=== PATIENT | female | born 1950 ===

== ENCOUNTER 2025-06-01 12:58 | Outpatient (AMB) | payer MEDICARE, OTHER, SELFPAY ==
--- OUTSIDE RECORDS SUMMARY | 2025-06-01 14:09 | XMS_ITS | Encounter Summary ---
Author Organization [facility] Address [address] [facility] [address] [place] [address] Phone Care Team Providers Care Band Saw Marker Name Role Phone Stan Diaz MD Primary Care Provider + [phone] Jarrod Goncalves MD Unavailable [phone] Stan Diaz MD Unavailable [phone] Encounter Details Date Type Department Care Team (Late st Contact Info) Description 12/30/2021 Procedure Pass [facility] Endoscopy Admitting Dept Virtual Department [address] [place] [address] Social History Tobacco Use Types Packs/Day Years Used Date Smoking Tobacco: Former Cigarettes 1 12 1 - 07/14/1975 Smokeless Tobacco: Never Alcohol Use Standard Drinks/Week Comments Yes 14 (1 standard drink = 0.6 oz pu re alcohol) Comments No Sex and Gender Information Value Date Recorded Sex Assigned at Female 06/25/2021 8:57 AM EDT Legal Sex Female 10:02 PM EDT Gender Identity Female 06/25/2021 8:57 AM EDT Sexual Orientation Not on file documented as of this encounter Plan of Treatment Upcoming Encounters Date Type Department Care Team (Late st Contact Info) Description 06/02/2025 9:00 AM EDT Office Visit [facility] [address] [place] [address] Stan Diaz MD [address] [facility], [address] [place] [address] [email or web address] documented as of this encounter Visit Diagnoses Not on filedocumented in this encounter Additional Health Concerns Assessment Noted Time PHQ-2 Depression Total Score: 0 12/27/19 22 12:57 PM EDT documented as of this encounter Care Teams Band Saw Marker Relationship Specialty Start Date End Date Stan Diaz MD [address] [place] [address], [address] [place] [address] [email or web address] PCP - General 07/26/17 Jarrod Goncalves MD [address] [address] Vascular Surgery 09/15/19 Stan Diaz MD [address] [place] [address], [address] [place] [address] [email or web address] Insurance Assigned Provider 01/12/24 documented as of this encounter Additional Source Comments The information contained in this document represents components of the legal health record. It is not the complete legal health record.[facility]
--- OUTSIDE RECORDS SUMMARY | 2025-06-01 14:09 | XMS_ITS | Encounter Summary ---
Author Organization [facility] Address [address] [place] [address] Phone Care Team Providers Care Veterinary Assistant Technician Name Role Phone Stan Diaz MD Primary Care Provider [phone]- [phone] Jarrod Goncalves MD Unavailable [phone] Stan Diaz MD Unavailable [phone] Encounter Details Date Type Department Care Team (Late st Contact Info) Description 09/26/2024 Procedure Pass [facility], [address] [address] Social History Tobacco Use Types Packs/Day Years Used Date Smoking Tobacco: Former Cigarettes 1 12 1 - 07/14/1975 Smokeless Tobacco: Never Alcohol Use Standard Drinks/Week Comments Yes 10 (1 standard drink = 0.6 oz pu re alcohol) Education Answer Date Recorded Are you interested in more education? Not on henry e 02/02/2023 Are you concerned about learning? Not on file 02/02/2023 No 02/02/2023 No 02/02/2023 Digital Access Answer Date Recorded No 03/05/2023 No 03/05/2023 Reliable internet access at home? Not on file 03/05/2023 Device with a working camera? Not on file Intimate Partner Violence Answer Date R ecorded Denied Basic Needs Not on file 03/30/2023 In the past 12 months have y ou been in a relationship with a person who hurts, threatens, or tries to control you? No 03/30/2023 Worried food would run out Not on file 03/30 In the past 12 months have y ou been in a relationship with a person who hurts, threatens, or tries to control you? No 03/30/2023 Comments No Sex and Gender Information Value Date Recorded Sex Assigned at Female 06/25/2021 8:57 AM EDT Legal Sex Female 10:02 PM EDT Gender Identity Female 06/25/2021 8:57 AM EDT Sexual Orientation Not on file documented as of this encounter Plan of Treatment Upcoming Encounters Date Type Department Care Team (Late st Contact Info) Description 06/02/2025 9:00 AM EDT Office Visit [facility] Family Medicine [address] [place] [address] Stan Diaz MD 22 [facility], [address] [address] [email or web address] documented as of this encounter Visit Diagnoses Not on filedocumented in this encounter Additional Health Concerns Assessment Noted Time PHQ-2 Depression Total Score: 0 10/22/19 25 11:06 AM EST documented as of this encounter Care Teams Veterinary Assistant Technician Relationship Specialty Start Date End Date Stan Diaz MD [address] [place] [address], [address] [place] [address] PCP - General 07/26/17 Jarrod Goncalves MD [address] [address] Vascular Surgery 09/15/19 Stan Diaz MD [address] [place] [address], [address] [place] [address] [email or web address] Insurance Assigned Provider 01/12/24 documented as of this encounter Additional Source Comments The information contained in this document represents components of the legal health record. It is not the complete legal health record.[facility]
--- OUTSIDE RECORDS SUMMARY | 2025-06-01 14:09 | XMS_ITS | Encounter Summary ---
Author Organization [facility] Address [address] [facility] [address] [place] [address] Phone Care Team Providers Care Credit Manager Name Role Phone Stan Diaz MD Primary Care Provider + [phone] Jarrod Goncalves MD Unavailable [phone] Stan Diaz MD Unavailable [phone] Encounter Details Date Type Department Care Team (Late st Contact Info) Description 07/24/2019 Ancillary Orders [address] [place] [address] Stan Diza MD [address] [facility], [address] [place] [address] [email or web address] Breast screening Social History Tobacco Use Types Packs/Day Years [...] Description 06/02/2025 9:00 AM EDT Office Visit [address] [place] [address] Stan Diaz MD [address] [place] [address], [address] [place] [address] documented as of this encounter Results * BI MAMMOGRAM SCREENING WITH TOMOSYNTHESIS WITH CAD (BILATERAL) (10/20/2019 9:50 AM EST) Anatomical Region Laterality Modality Breast Left, Breast Right, Breast Bilateral Bila teral Mammography 10/20/2019 10:4 1 AM EST Impressions 10/20/2019 10:43 AM EST No mammographic evidence of malignancy. BI-RADS CATEGORY: 1 - Negative. DENSITY: There are scattered fibroglandular densities. POS - [facility] Narrative 10/20/2019 10:43 AM EST Standard digital full-field 2-D C view and two-plane tomographic imaging was performed and compared with multiple prior studies, most recently 10/18/2018, with utilization of computer-aided detection. The breasts are composed of scattered fibroglandular densities. The stromal markings are essentially unchanged in overall appearance and distribution. No dominant spiculated mass, suspicious clustered microcalcifications, or focal zone of pathologic skin thickening or retraction are noted to have arisen in the interim. Procedure Note Pato Tatum MD - 10/20/2019 Standard digital full-field 2-D C view and two-plane tomographic imagingwas performed and compared with multiple prior studies, most hetrngms28/11/2019, with utilization of computer-aided detection. The breasts are composed of scattered fibroglandular densities. Thestromal markings are essentially unchanged in overall appearance anddistribution. No dominant spiculated mass, suspicious clusteredmicrocalcifications, or focal zone of pathologic skin thickening orretraction are noted to have arisen in the interim. IMPRESSION: No mammographic evidence of malignancy. BI-RADS CATEGORY: 1 - Negative. DENSITY: There are scattered fibroglandular densities. POS - [facility] us Stan Diaz MD IMG MG EXAMS Final Resu lt documented in this encounter Visit Diagnoses Diagnosis Breast screening Breast screening, unspecified Breast screening Breast screening, unspecified documented in this encounter Additional Health Concerns Infection Onset Date Last Indicated Resolved Time CoV-Risk 06/25/2021 06/29/2021 07/09/2021 1:23 AM EDT Assessment Noted Time PHQ-2 Depression Total Score: 0 08/07/20 2:36 PM EDT documented as of this encounter Care Teams Credit Manager Relationship Specialty Start Date End Date Stan Diaz MD [address] [place] [address], [address] [place] [address] [email or web address] PCP - General 07/26/17 Jarrod Goncalves MD [address] [address] Vascular Surgery 09/15/19 Stan Diaz MD [address] [place] [address], [address] [place] [address] [email or web address] Insurance Assigned Provider 01/12/24 documented as of this encounter Additional Source Comments The information contained in this document represents components of the legal health record. It is not the complete legal health record.[facility]
--- OUTSIDE RECORDS SUMMARY | 2025-06-01 14:09 | XMS_ITS | Encounter Summary ---
Author Organization [facility] Address [address] [facility] [address] [place] [address] Phone Care Team Providers Care Button Facing Machine Operator Name Role Phone Stan Diaz MD Primary Care Provider + [phone] Jarrod Goncalves MD Unavailable [phone] Stan Diaz MD Unavailable [phone] Encounter Details Date Type Department Care Team (Late st Contact Info) Description 07/28/2020 Procedure Pass [address] [address] Social History Tobacco Use Types Packs/Day Years [...] Description 06/02/2025 9:00 AM EDT Office Visit [facility] Medicine [address] [place] [address] Stan Diaz MD [address] [facility], [address] [place] [address] documented as of this encounter Visit Diagnoses Not on filedocumented in this encounter Additional Health Concerns Infection Onset Date Last Indicated Resolved Time CoV-Risk 06/25/2021 06/29/2021 07/09/2021 1:23 AM EDT Assessment Noted Time PHQ-2 Depression Total Score: 0 08/07/20 2:36 PM EDT documented as of this encounter Care Teams Button Facing Machine Operator Relationship Specialty Start Date End Date Stan Diaz MD [address] [place] [address], [address] [place] [address] PCP - General 07/26/17 Jarrod Goncalves MD [address] [address] Vascular Surgery 09/15/19 Stan Diaz MD [address] [place] [address], [address] [place] [address] Insurance Assigned Provider 01/12/24 documented as of this encounter Additional Source Comments The information contained in this document represents components of the legal health record. It is not the complete legal health record.[facility]
--- OUTSIDE RECORDS SUMMARY | 2025-06-01 14:09 | XMS_ITS | Clinical Summary ---
Author Organization [facility] Address [address] [address] Phone Care Team Providers Care Customer Engagement Specialist Name Role Phone Stan Diaz MD Primary Care Provider [phone] Jarrod Goncalves MD Unavailable Stan Diaz MD Unavailable [phone] Allergies Active Allergy Reactions Criticality Noted Date Comments Morphine Itching 05/18/2017 Opioids-Meperidine And Related 08/07 Oxycodone-Acetaminophen Unknown 05/18/2017 Sulfa (Sulfonamide Antibiotics) Rash Low 05/08 Enalapril Maleate Rash Low 05/18/2017 Medications aspirin 81 mg chewable tablet Take 1 tablet by mouth daily. 10/28/19 16 Active cyanocobalamin, vitamin B-12, 1,000 mcg Subl sublingual tablet Take 1 tablet by mouth every other day. 06/02/20 13 Active cholecalciferol, vitamin D3, 25 mcg (1,000 unit) capsule Take 1,000 Units by mouth daily. daily Active polyethylene glycol (MIRALAX) 17 gram packet Take 0.4 g/kg by mouth daily. Active traMADoL (ULTRAM) 50 mg tablet Take 50 mg by mouth every 6 (six) hours as needed. 08/27/20 23 Active desonide (DESOWEN) 0.05 % ointment Apply 0.05 Applications topically as needed. 01/01/20 24 Active coenzyme Q10 200 mg capsule Take 200 mg by mouth daily. Active ketoconazole 2 % cream Apply 2 Applications topically as needed. 60 g 10/22/19 25 Active clobetasol (TEMOVATE) 0.05 % cream Apply 1 Application topically 2 (two) times a day as needed (Eczema). Eczema 10/22/19 25 Active buPROPion (WELLBUTRIN SR) 100 MG SR 12 hr tablet TAKE 1 TABLET BY MOUTH EVERY DAY 90 tablet 3 01/06/20 25 Active levothyroxine (SYNTHROID, LEVOTHROID) 100 MCG tabletIndications: Acquired hypothyroidism TAKE 1 TABLET BY MOUTH ONCE DAILY IN THE MORNING 90 tablet 3 01/07/20 25 Active amLODIPine (NORVASC) 5 MG tablet Take 1 tablet (5 mg total) by mouth daily. 90 tablet 1 03/06/20 25 Active atorvastatin (LIPITOR) 10 MG tablet Take 1 tablet by mouth once daily 90 tablet 03/11/20 25 Active hydroCHLOROthiazid e 25 MG tablet Take 1 tablet by mouth once daily 90 tablet 03/11/20 25 Active atenolol (TENORMIN) 100 MG tabletIndications: Essential hypertension TAKE 1 TABLET BY MOUTH EVERY DAY 90 tablet 3 03/31/20 25 Active Hospital, Clinic, or Other Facility Administered Medication Ordered Dose Route Frequency Start Date End Date Status lidocaine (XYLOCAINE) 1% injection 2 mLIndications:Primary localized osteoarthrosis of right shoulder region 2 mL See Adm Inst Once 05/06/2025 08/04/2025 A ctive BUPivacaine HCl (MARCAINE) 0.25% injection 2 mLIndications:Primary localized osteoarthrosis of right shoulder region 2 mL See Adm Inst Once 05/06/2025 08/04/2025 A ctive triamcinolone acetonide (KENALOG-40) 40 mg/mL injection 80 mgIndications:Primary localized osteoarthrosis of right shoulder region 80 mg See Adm Inst Once 05/06/2025 08/04/2025 A ctive Active Problems Problem Noted Date Diagnosed Date Degeneration of intervertebr al disc of lumbar region with discogenic back pain 10/22/2024 Assessment & Plan (10/22/2024 3:19 PM EST): S/P evacuation of hematoma 03/18/2024 Eye pain, right 05/26/2023 Assessment & Plan (05/26/2023 3:50 PM EDT): Pt with ongoing gritty sensation in right eye. I advised urgent evaluation by [facility] for further assessment and diagnoses. No clear evidence of infection on exam today. Unclear if lesions noted are part of patient's typical anatomy or area of concern. She will call our office if symptoms worsen. She is advised of and aware of red flag symptoms that should prompt urgent evaluation. She will continue to use moisturizing drops for comfort. 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 Continue present medications without change. Ketoconazole refill provided. Mild intermittent asthma without complication Osteopenia 09/25/2017 Poor balance 09/25/2017 Seasonal affective disorder 09/25/2017 Sessile colonic polyp 09/25/2017 Seasonal allergies Overview (03/01/2022): gets injections Stenosis of right carotid artery Overview (03/01/2022): Monitored by dr goncalves Assessment & Plan (10/22/2024 3:19 PM EST): Resolved Problems Problem Noted Date Diagnosed Date Resolved Date Serum calcium elevated 09/25/201706/19 Neck swelling 09/25/2017 06/19/2022 Shortness of breath 09/25/2017 06/19/20 22 Encounters Date Type Department Care Team Description 05/06/2025 1:30 PM EDT Office Visit [facility] [address] [place] [address] Syl Campuzano MD Primary localized osteoarthrosis of right shoulder region (Primary Dx) 04/23/2025 8:20 AM EDT - 04/23/2025 11:59 PM EDT Hospital Encounter [facility] [address] [place] [address] Stan Diaz MD Discharge Disposition: Home or Self Care 04/21/2025 10:00 AM EDT Office Visit [facility] [address] [place] [address] Stan Diaz MD Essential hypertension (Primary Dx); 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; Acquired hypothyroidism; Hair loss 03/30/2025 Refill [facility] [address] [place] [address] Stan Diaz MD Medication Refill 03/20/2025 10:12 AM EDT - 03/20/2025 11:59 PM EDT Hospital Encounter [address] [address] Stan Diaz MD Discharge Disposition: Home or Self Care 03/11/2025 Refill [facility] [address] [place] [address] Stan Diaz MD Medication Refill 09/26/2024 Procedure Pass [address] [address] from Last 3 Months Immunizations Immunization Administration Dates Next Due COVID-19 (Pre-07/30) Pfizer Vaccine, Bivalent 12+ 07/09/2022 COVID-19 (Pre-07/30) Pfizer Vaccine, mRNA, PF 12/18/2020,11/27/2020 INFLUENZA, SPLIT VIRUS, TRIV ALENT W/ PRESERVATIVE IM 08/15/2012,06/09/2011 Influenza High-Dose Quadriva lent Preservative Free IM 07/09/2022,07/09/2020 Influenza High-Dose Trivalen t Preservative Free IM 06/27/2024,07/11/2019,07/09/2018,07/10,06/30/2016,07/23/2015 Influenza trivalent preserva tive free intradermal 07/08/2013 Influenza, Unspecified Formulation 07/01/2023,,06/24/2010 Pneumococcal conjugate PCV13 07/23/2015 Pneumococcal polysaccharide PPSV23 07/24/2016 RSV Vaccine (monovalent, adjuvanted) 07/17/2023 Td (adult),2 Lf Tetanus Toxo id, PF, Adsorbed 06/06/2021 Tdap 01/31/2011 Zoster live 07/10/2011 Zoster recombinant 03/20/2018,01/10/2018 Family History Medical History Relation Comments Cancer Father Lung cancer Sister 1 Cancer Sister 2 Cancer Sister 3 Breast cancer Neg Hx Relation Status Comments Father Sister 1 Sister 2 Sister 3 Alive Social History Tobacco Use Types Packs/Day Years Used Date Smoking Tobacco: Former Cigarettes 1 12 1 - 07/14/1975 Smokeless Tobacco: Never Tobacco Cessation:Counseling Given: Not Answered Alcohol Use Standard Drinks/Week Comments Yes 10 [...] ecorded Denied Basic Needs Not on file 10/22/2024 In the past 12 months have y ou been in a relationship with a person who hurts, threatens, or tries to control you? No 10/22/2024 Worried food would run out Not on file 10/22 In the past 12 months have y ou been in a relationship with a person who hurts, threatens, or tries to control you? No 10/22/2024 Comments No Sex and Gender Information Value Date Recorded Sex Assigned at Female 06/25/2021 8:57 AM EDT Legal Sex Female 10:02 PM EDT Gender Identity Female 06/25/2021 8:57 AM EDT Sexual Orientation Not on file Last Filed Vital Signs Vital Sign Reading Time Taken Comments Blood Pressure 130/80 04/21/2025 10:09 AM EDT home average Pulse 50 04/21/2025 9:47 AM EDT Temperature 35.6 C (96.1 F) 10/22/2024 2:11 PM EST Respiratory Rate 20 04/04/2023 12:5 1 PM EDT Oxygen Saturation 98% 04/21/2025 9:4 7 AM EDT Inhaled Oxygen Concentration - - Weight 57.7 kg (127 lb 3.2 oz) 04/21/20 9:47 AM EDT Height 152.5 cm (5' 0.04 ) 04/21/2025 9 :47 AM EDT Body Mass Index 24.81 04/21/2025 9:47 AM EDT Plan of Treatment Upcoming Encounters Date Type Department Care Team (Late st Contact Info) Description 06/02/2025 9:00 AM EDT Office Visit [facility] [address] [place] [address] [place] [address] Stan Diaz MD [address] [facility], [address] [place] [address] Health Maintenance Due Date Last Done Comments COLOGUARD 1995 FIT TEST 1995 FOBT 1995 SIGMOIDOSCOPY 1995 VIRTUAL COLONOSCOPY 1995 COVID-19 VACCINE ( season) 2024 06/27/2024, 07/03/2023, 07/09/2022, Additional history exists INFLUENZA VACCINE (#1) 2025 , 07/01/2023, 07/01/2023, Additional history exists BLOOD PRESSURE 10/22/2025 04/21/2025 DEPRESSION SCREENING 10/22/2025 10/22/2024 LIPID PANEL 04/23/2026 04/23/2025, 09/0 01/2024, 04/05/2023, Additional history exists POTASSIUM LEVEL 04/23/2026 04/23/2025, 09/0 01/2024, 04/05/2023, Additional history exists TSH LEVEL 04/23/2026 04/23/2025, 09/0 01/2024, 04/05/2023, Additional history exists COLONOSCOPY 12/30/2026 12/30/2021, 09/27/2016 COLORECTAL CANCER SCREENING 12/30/2026 MAMMOGRAM 03/20/2027 03/20/2025, 12/07, 10/26/2022, Additional history exists Adult Td,Tdap Booster 06/06/2031 06/06/2021, 011 PNEUMOCOCCAL VACCINES (50+ years) Completed 07/24/2016, 07/23/2015 ZOSTER VACCINES Completed 03/20/2018, 02/2018, 07/10/2011 HEPATITIS C SCREENING Completed 08/09/2018, 018 RSV VACCINE Completed 07/17/2023 OSTEOPOROSIS SCREENING INITIAL (ONE-TIME) Completed 06/11/2024, 12/27/2018, 08/06/2015 SMOKING STATUS SCREENING (Once After 26 Yrs) Completed 05/06/2025 HEPATITIS A VACCINES Aged Out No long er eligible based on patient's age to complete this topic HIB VACCINES Aged Out No longer eligi ble based on patient's age to complete this topic MENINGOCOCCAL VACCINES (ACWY) Aged Out No longer eligible based on patient's age to complete this topic MENINGOCOCCAL VACCINES (B) Aged Out N o longer eligible based on patient's age to complete this topic Medical Devices Not on file Procedures Procedure Name Priority Date/Time Associated Diagnosis Comments LIPID PANEL Routine 04/23/2025 8:30 AM EDT 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 TSH WITH REFLEX Routine 04/23/2025 8:30 AM EDT Acquired hypothyroidism CBC AND DIFFERENTIAL Routine 04/23/2025 8:30 AM EDT Hair loss FERRITIN Routine 04/23/2025 8:30 AM EDT Hair loss BASIC METABOLIC PANEL Routine 04/23/2025 8:30 AM EDT 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 BI MAMMOGRAM SCREENING WITH TOMOSYNTHESIS WITH CAD (BILATERAL) Routine 03/20/2025 10:30 AM EDT Visit for screening mammogram BD DXA AXIAL (SPINE) WITH HIP Routine 06/11/2024 1:44 PM EDT Osteopenia, unspecified location ENDOSCOPY, COLON 12/30/2021 8:43 AM EDT HEPATITIS C ANTIBODY, QUALITATIVE Routine 08/09/2018 9:13 AM EDT Annual physical exam from Last 3 Months or Most Recently Relevant to Health Maintenance Results * TSH with reflex (04/23/2025 8:30 AM EDT) TSH 1.98 0.27 - 4.20 uIU/mL [facility] Blood 04/23/2025 8:30 AM EDT 04/23/2025 8:34 AM EDT us Stan Diaz MD LAB BLOOD ORDERABLES Final Result [address] [address] * (ABNORMAL) CBC and differential (04/23/2025 8:30 AM EDT) WBC 5.80 4.00 - 11.00 K/uL [facility] RBC 4.52 4.00 - 5.20 M/uL [facility] HGB 14.2 12.0 - 16.0 g/dL [facility] HCT 41.4 36.0 - 46.0 % [facility] PLT 251 150 - 450 K/uL [facility] MCV 91.6 80.0 - 100.0 fL [facility] MCH 31.4(H) 27.0 - 31.0 pg [facility] MCHC 34.3 32.0 - 36.0 g/dL [facility] RDW 12.1 11.5 - 14.5 % [facility] MPV 9.8 8.4 - 12.0 fL [facility] NRBC 0.00 0.00 /100 WBCs [facility] ABSOLUTE NRBC 0.00 0.00 K/uL [facility] DIFF METHOD Auto [facility] NEUTS 54.4 48.0 - 76.0 % [facility] LYMPHS 32.1 18.0 - 41.0 % [facility] MONOS 8.1 4.0 - 11.0 % [facility] EOS 4.3 0.0 - 5.0 % [facility] BASOS 0.9 0.0 - 1.5 % [facility] Granulocytes, immature (%) 0.2 0.0 - 0.9 % [facility] ABSOLUTE NEUTS 3.16 1.92 - 7.60 K/uL [facility] ABSOLUTE LYMPHS 1.86 0.72 - 4.10 K/uL [facility] ABSOLUTE MONOS 0.47 0.16 - 1.10 K/uL [facility] ABSOLUTE EOS 0.25 0.00 - 0.50 K/uL [facility] ABSOLUTE BASOS 0.05 0.00 - 0.15 K/uL [facility] Granulocytes, immature 0.01 0.00 - 0.09 K/uL [facility] Blood 04/23/2025 8:30 AM EDT 04/23/2025 8:34 AM EDT Stan Diaz MD LAB BLOOD ORDERABLES Final Result Performing Organization Address [facility]/ZIP Co de Phone Number [address] [address] * Ferritin (04/23/2025 8:30 AM EDT) FERRITIN 103 13 - 150 ug/L [facility] Blood 04/23/2025 8:30 AM EDT 04/23/2025 8:34 AM EDT Stan Diaz MD LAB BLOOD ORDERABLES Final Result Performing Organization Address [facility]/ZIP Co de Phone Number [address] [address] * (ABNORMAL) Lipid panel (04/23/2025 8:30 AM EDT) HDL 63 mg/dL [facility] Comment: Interpretation <40 mg/dL: Low HDL cholesterol (major risk factor for CHD) Greater than or equal to 60 mg/dL: High HDL cholesterol ( negative risk factor for CHD) HDL - cholesterol is affected by a number of factors, e.g. smoking, excerise, hormones, sex and age. CHOLESTEROL 163 0 - 240 mg/dL [facility] TRIGLYCERIDES 130 30 - 160 mg/dL [facility] LDL 74 50 - 129 mg/dL [facility] Comment: LDL levels in terms of risk for coronary heart disease: <100 mg/dL: Optimal 100-129 mg/dL: Near or above optimal 130-159 mg/dL: Borderline high 160-189 mg/dL: High >190 mg/dL: Very High CARDIAC RISK RATIO 2.6(L) 3.3 - 4.4 C [facility] Blood 04/23/2025 8:30 AM EDT 04/23/2025 8:34 AM EDT Stan Diaz MD LAB BLOOD ORDERABLES Final Result [address] [address] * Basic metabolic panel (04/23/2025 8:30 AM EDT) SODIUM 136 133 - 146 mmol/L [facility] CHLORIDE 99 96 - 108 mmol/L [facility] POTASSIUM 3.8 3.3 - 5.1 mmol/L [facility] Comment:Specimen slightly he molyzed, result may be falsely elevated. CO2 27 21 - 35 mmol/L [facility] BUN 17 6 - 19 mg/dL [facility] CREATININE 0.70 0.5 - 1.5 mg/dL [facility] GLUCOSE 94 70 - 99 mg/dL [facility] CALCIUM 9.6 8.4 - 10.3 mg/dL [facility] EGFR 91 >59 mL/min/1.7 3m2 [facility] Comment:Estimated glomerular filtration rate calculated using the CKD-EPI refit equation. ANION GAP 14 10 - 20 mmol/L [facility] Blood 04/23/2025 8:30 AM EDT 04/23/2025 8:34 AM EDT Stan Diaz MD LAB BLOOD ORDERABLES Final Result [facility] [address] [place] [address] * BI MAMMOGRAM SCREENING WITH TOMOSYNTHESIS WITH CAD (BILATERAL) (03/20/2025 10:30 AM EDT) Anatomical Region Laterality Modality Breast Left, Breast Right, Breast Bilateral Bila teral Mammography 03/21/2025 7:24 AM EDT Impressions 03/21/2025 7:25 AM EDT No mammographic evidence of malignancy in either breast. Annual screening mammography is recommended. BI-RADS 1 NEGATIVE The patient will be notified of the results and recommendations. Narrative 03/21/2025 7:25 AM EDT BI MAMMOGRAM SCREENING WITH TOMOSYNTHESIS WITH CAD (BILATERAL) Additional patient information: Screening. COMPARISON: Comparison is made with relevant prior imaging. Breast composition: The breasts are almost entirely fatty. FINDINGS: No abnormal masses, suspicious calcifications, or other significant findings are identified mammographically in either breast. Procedure Note Sofía Jack MD - 03/21/2025 BI MAMMOGRAM SCREENING WITH TOMOSYNTHESIS WITH CAD (BILATERAL) Additional patient information: Screening. COMPARISON: Comparison is made with relevant prior imaging. Breast composition: The breasts are almost entirely fatty. FINDINGS: No abnormal masses, suspicious calcifications, or other significantfindings are identified mammographically in either breast. IMPRESSION: No mammographic evidence of malignancy in either breast. Annual screening mammography is recommended. BI-RADS 1 NEGATIVE The patient will be notified of the results and recommendations. us Stan Diaz MD IMG MG EXAMS Final Resu lt * BD DXA AXIAL (SPINE) WITH HIP (06/11/2024 1:44 PM EDT) Anatomical Region Laterality Modality Bone Density Bone Density 06/11/2024 1:41 PM EDT Impressions 06/11/2024 1:45 PM EDT Interpretation: Osteopenia. Narrative 06/11/2024 1:45 PM EDT Referred By: STAN DIAZ V Indications: Osteopenia Scanner: Stereotypes A with serial# of [id number] located at [facility] Bone Density Scan (DXA) 06/11/24 Details of prior DXA scans are available by clicking View Image BMD T- Z- Skeletal Site gm/cm2 score score BMD Change Since Prior Scan ------ ----- ----- PA Spine (L1-L4) 1.060 0.10 2.50 0.104 (10.9%)* since 12/27/2018 Total Hip (Left) 0.745 -1.60 0.10 -0.015 (stable) since 12/27/2018 Femoral Neck (Left) 0.632 -2.00 0.10 -0.013 (stable) since 12/27/2018 ------ ----- ----- * Denotes significant change when >= 0.022 g/cm2 for the spine, 0.027 g/cm2 for the total hip, 0.029 g/cm2 for the femoral neck. Interpretation: Osteopenia. Technical Quality: Imaging of all sites was of adequate quality. FRAX: Based on FRAX(r) 3.6 ([place] White female), this patient's likelihood of hip fracture is 2.6% and major osteoporotic fracture is 12% over the next 10 years. The patient reported no risks of fracture. Additional Information: -World Health Organization criteria classify adults based on lowest T-score at PA spine, hip or forearm: Normal (T-score >= -1.0), Osteopenia (T-score between -1 and -2.5), or Osteoporosis (T-score <= -2.5). At [facility], T-scores are compared to peak bone density of a young white gender matched reference population. - For premenopausal women and men under the age of 50, Z-scores (comparison to age, gender, and ethnicity matched reference population) are used: Above expected range for age (Z-score >= 2.0), Within expected range of age (Z-score 1.9 to -1.9), or Below expected range for age (Z-score <= -2.0). - The Bone Health and Osteoporosis Foundation recommends that treatment be considered in men aged more than 50 years and in postmenopausal women with ANY of the following: Prior hip or vertebral fractures; T-score of <= -2.5 at the PA spine or hip; or 10 year fracture probability by FRAX of >= 3% for the hip or >= 20% for major osteoporotic fracture. - The FRAX algorithm (https://www.mohamud.ac.uk/FRAX/tool.aspx) is designed to predict 10-year fracture risk in treatment-naive adults between the ages of 40 and 90. It is not intended to be used in those receiving pharmacologic osteoporosis treatment. - Including race/ethnicity in the generation of T- or Z-scores or in the FRAX calculation is complicated, and currently undergoing active review to ensure that we can give patients the best information on their risk of fracture. -Some prior studies may not be compatible with our comparison software. -Click on View Full Report to see subsequent pages with images and prior bone density results. Reviewed By: Tuan Barajas MD on 06/11/2024 13:45:46 Procedure Note Tuan Barajas MD - 06/11/2024 Referred By: STAN DIAZ V Indications: Osteopenia Scanner: HoloSesamea A with serial# of [id number] located at [facility] Bone Density Scan (DXA) 06/11/24 Details of prior DXA scans are available by clicking View Image BMD T- Z- Skeletal Site gm/cm2 score score BMD Change Since Prior Scan ------ ----- PA Spine (L1-L4) 1.060 0.10 2.50 0.104 (10.9%)* since12/27/2018 Total Hip (Left) 0.745 -1.60 0.10 -0.015 (stable) since12/27/2018 Femoral Neck (Left) 0.632 -2.00 0.10 -0.013 (stable) since12/27/2018 ------ ----- * Denotes significant change when >= 0.022 g/cm2 for the spine, 0.027g/cm2 for the total hip, 0.029 g/cm2 for the femoral neck. Interpretation: Osteopenia. Technical Quality: Imaging of all sites was of adequate quality. FRAX: Based on FRAX(r) 3.6 ([place] White female), this patient's likelihoodof hip fracture is 2.6% and major osteoporotic fracture is 12% over the next10 years. The patient reported no risks of fracture. Additional Information: -World Health Organization criteria classify adults based on lowestT-score at PA spine, hip or forearm: Normal (T-score >= -1.0), Osteopenia (T-score between -1 and -2.5), or Osteoporosis (T-score <= -2.5). At [facility], T-scores are compared to peak bone density of a young white gender matched reference population. - For premenopausal women and men under the age of 50, Z-scores(comparison to age, gender, and ethnicity matched reference population) are used:Above expected range for age (Z-score >= 2.0), Within expected range of age (Z-score 1.9 to -1.9), or Below expected range for age (Z-score <= -2.0). - The Bone Health and Osteoporosis Foundation recommends that treatment be considered in men aged more than 50 years and in postmenopausal women with ANY of the following: Prior hip or vertebral fractures; T-score of <= -2.5 at the PA spine or hip; or 10 year fracture probability by FRAX of >= 3%for the hip or >= 20% for major osteoporotic fracture. - The FRAX algorithm (https://www.mohamud.ac.uk/FRAX/tool.aspx) is designed to predict 10-year fracture risk in treatment-naive adultsbetween the ages of 40 and 90. It is not intended to be used in those receiving pharmacologic osteoporosis treatment. - Including race/ethnicity in the generation of T- or Z-scores or in the FRAX calculation is complicated, and currently undergoing active review to ensure that we can give patients the best information on their risk of fracture. -Some prior studies may not be compatible with our comparison software. -Click on View Full Report to see subsequent pages with images and prior bone density results. Reviewed By: Tuan Barajas MD on 06/11/2024 13:45:46 IMPRESSION: Interpretation: Osteopenia. us Stan Diaz MD IMG BD BONE DENSITY DEXA F inal Result * ENDOSCOPY, COLON (12/30/2021 8:43 AM EDT) Narrative Transcriptions Jazmín Dubois MD - 12/30/2021 8:43 AM EDT Patient Name: Lissette Wells Attending MD:: JAZMÍN DUBOIS MD Procedure Date: 12/30/2021 8:43 AM Date of : 1950 Age: 71 Admit Type: Outpatient Gender: Female Room: [facility] Referring MD: STAN DIAZ MD Exam Type: Colonoscopy Indications: Surveillance: Personal history of colonic polyps (unknown histology) on last colonoscopy 5 yearsago Medications: Monitored Anesthesia Care Procedure: Informed consent was obtained from the patientafter discussion of the indications, limitations, alternatives, benefits, and risks of the procedure. Risks specifically discussed include but are not limited to medication reactions, missed lesions, bleeding, perforation, or the need for emergent surgery. Throughout the procedure, the patient's blood pressure, pulse, end-tidal CO2, and oxygensaturations were monitored continuously. The Olympus adult variable colonoscope [id number] #[id number] was introduced through the anus and advanced to the cecum, identified by the appendiceal orifice, ICvalve and transillumination. The colonoscopy wasperformed without difficulty. The patient tolerated the procedure well. The quality of the bowelpreparation was good. Complications: No immediate complications. Findings: The perianal and digital rectal examinations were normal. A 3 mm polyp was found in the recto-sigmoid colon.The polyp was sessile. The polyp was removed with ajumbo cold forceps. Resection and retrieval werecomplete. Verification of patient identification for the specimen was done by the physician and nurse usingthe patient's name and date. Estimated blood loss was minimal. The exam was otherwise without abnormality ondirect and retroflexion views. Impression: - One 3 mm polyp at the recto-sigmoid colon,removed with a jumbo cold forceps. Resected andretrieved. - The examination was otherwise normal on directand retroflexion views. Recommendation: - Discharge patient to home. - Resume previous diet. - Continue present medications. - Await pathology results. - Repeat colonoscopy in 5 years for surveillancebased on pathology results. - Return to my office in 5 years. JAZMÍN DUBOIS MD 12/30/2021 9:28:01 AM This report has been signed electronically. Number of Addenda: 0 Note Initiated On: 12/30/2021 8:43 AM Procedure Code(s): --- Professional --- 71378, Colonoscopy, flexible; with biopsy, single or multiple --- Technical --- 05168, Colonoscopy, flexible; with biopsy, single or multiple Diagnosis Code(s): --- Professional --- Z86.010, Personal history of colonic polyps K63.5, Polyp of colon --- Technical --- Z86.010, Personal history of colonic polyps K63.5, Polyp of colon CPT copyright 2020 [employer] [place] [employer]. All rights reserved. The codes documented in this report are preliminary and upon ostrich farmer reviewmay be revised to meet current compliance requirements. Procedure Date: 12/30/2021 8:43:[address] [place] [address] Stan Diaz MD GI PROCEDURE ORDERABLES Fi nal Result * Hepatitis C antibody, qualitative (08/09/2018 9:13 AM EDT) HCV Negative Negative [facility] Comment: This is a screening test and should be confirmed with molecular testing Blood 08/09/2018 9:13 AM EDT 08/09/2018 9:17 AM EDT Stan Diaz MD LAB BLOOD ORDERABLES Final Result Performing Organization Address City/State/[facility] Co de Phone Number [facility] [address] [place] [address] from Last 3 Months or Most Recently Relevant to Health Maintenance Insurance MEDICARE PART A & B Member Subscriber Plan / Payer (Ef fective 2015-Present) Name:Lissette Wells Member ID:[id number] Relation to Subscriber:Self Name:Lissette Wells Subscriber ID:[id number] Payer ID:[id number] Group ID:Not on file Type:Medicare Address: [facility] [employer] [facility]ITALpluriSelect [facility]. [address] [place] [address] [facility] EXTENSION MEDICARE SUPPLEMENT MEDICARE PART A & B [facility] EXTENSION MEDICARE SUPPLEMENT MEDICARE PART A & B [employer] EXTENSION MEDICARE SUPPLEMENT MEDICARE PART A & B [employer] EXTENSION MEDICARE SUPPLEMENT MEDICARE PART A & B [facility] MEDICARE SUPPLEMENT MEDICARE PART A & B [employer] EXTENSION MEDICARE SUPPLEMENT MEDICARE PART A & B [facility] EXTENSION MEDICARE SUPPLEMENT MEDICARE PART A & B [employer] MEDICARE SUPPLEMENT MEDICARE PART A & B [employer] EXTENSION MEDICARE SUPPLEMENT Care Teams Customer Engagement Specialist Relationship Specialty Start Date End Date Stan Diaz MD [address] [place] [address], [address] [place] [address] PCP - General 07/26/17 Jarrod Goncalves MD [address] [address] Vascular Surgery 09/15/19 Stan Diaz MD [address] [place] [address], [address] [place] [address] [email or web address] Insurance Assigned Provider 01/12/24 Additional Source Comments The information contained in this document represents components of the legal health record. It is not the complete legal health record.[facility]
--- OUTSIDE RECORDS SUMMARY | 2025-06-01 14:09 | XMS_ITS | Encounter Summary ---
Author Organization 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; Exertional dyspnea Social History Tobacco Use Types Packs/Day Years [...] Description 06/02/2025 9:00 AM EDT Office Visit [facility] [address] [place] [address] Stan Diaz MD [address] [facility], [address] [place] [address] [email or web address] documented as of this encounter Results * NC Stress Result for Nuclear Stress Test (09/15/2022 11:22 AM EST) Max BP Systolic 178 mmHg [facility] Max BP Diastolic 82 mmHg [facility] Max HR 139 BPM [facility] Resting HR 67 BPM [facility] Resting BP Systolic 150 mmHg [facility] Resting BP Diastolic 80 mmHg [facility] Peak METS 11.7 METS [facility] Peak HR 139 BPM [facility] Anatomical Region Laterality Modality Heart Other 09/15/2022 10:2 8 AM EST 09/15/2022 11:21 AM EST Narrative 09/15/2022 12:10 PM EST Response to Stress The patient exercised for minutes seconds, achieving 11.7 METS at peak exercise. Baseline blood pressure was 150/80 mmHg, and baseline heart rate was 67 bpm. The patient achieved a peak heart rate of 139 bpm, which is% of their maximum predicted heart rate. REPORT- Patient exercised for 9:30 minutes on a ANYA protocol achieving 11.7 METS. Test terminated due to fatigue. Baseline resting heart rate was 57 bpm. Maximum heart rate achieved was 139 bpm (93% MPHR). 1. EKG - Baseline EKG showed sinus bradycardia with non-specific ST/T wave abnormalities. During exercise, there were up to 2 mm horizontal to down-sloping ST depressions in the inferolateral leads. 2. SYMPTOMS - No chest pain. 3. EXERCISE PHYSIOLOGY - Very high functional capacity for age. BP 148/80 at rest, 178/82 during exercise, and 146/82 upon discharge from stress lab. Oxygen saturation maintained > 95% on room air during exercise. 4. ARRHYTHMIAS - Rare PACs and PVCs. Conclusion - Stress test with EKG evidence of ischemia. No symptoms concerning for angina. Nuclear images pending and will be reported separately. Altagracia Chow NP with Dr Orozco . 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 Exertional dyspnea Other dyspnea and respiratory abnormality documented in this encounter Additional Health Concerns Assessment Noted Time PHQ-2 Depression Total Score: 0 12/27/19 22 12:57 PM EDT documented as of this encounter Care Teams Information Technology Analyst Relationship Specialty Start Date End Date Stan Diaz MD [address] [facility], [address] [place] [address] [email or web address] PCP - General 07/26/17 Jarrod Goncalves MD [address] [address] Vascular Surgery 09/15/19 Stan Diaz MD [address] [facility], [address] [place] [address] [email or web address] Insurance Assigned Provider 01/12/24 documented as of this encounter Additional Source Comments The information contained in this document represents components of the legal health record. It is not the complete legal health record.[facility]
--- OUTSIDE RECORDS SUMMARY | 2025-06-01 14:09 | XMS_ITS | Encounter Summary ---
Author Organization [facility] Address [address] [facility] [address] [place] [address] Phone Care Team Providers Care Education Professor Name Role Phone Stan Diaz MD Primary Care Provider + [phone] Stan Diaz MD Unavailable [phone] Jarrod Goncalves MD Unavailable + [phone] Stan Diaz MD Unavailable [phone] Encounter Details Date Type Department Care Team (Late st Contact Info) Description 01/08/2019 Procedure Pass [facility], [address] [address] Social History Tobacco Use Types Packs/Day Years Used Date Smoking Tobacco: Former Smokeless Tobacco: Never Comments No Sex and Gender Information Value Date Recorded Sex Assigned at Female 06/25/2021 8:57 AM EDT Legal Sex Female 10:02 PM EDT Gender Identity Female 06/25/2021 8:57 AM EDT Sexual Orientation Not on file documented as of this encounter Plan of Treatment Upcoming Encounters Date Type Department Care Team (Late st Contact Info) Description 06/02/2025 9:00 AM EDT Office Visit [address] [address] Stan Diaz MD [address] [facility], [address] [place] [address] [email or web address] documented as of this encounter Visit Diagnoses Not on filedocumented in this encounter Additional Health Concerns Infection Onset Date Last Indicated Resolved Time CoV-Risk 06/25/2021 06/29/2021 07/09/2021 1:23 AM EDT Assessment Noted Time PHQ-2 Depression Total Score: 0 08/07/20 18 2:36 PM EDT documented as of this encounter Care Teams Education Professor Relationship Specialty Start Date End Date Stan Diaz MD [address] [place] [address], [address] [place] [address] PCP - General 07/26/17 Stan Diaz MD [address] [place] [address], [address] [place] [address] Insurance Assigned Provider 09/08/17 04/19/19 Jarrod Goncalves MD [address] [address] Vascular Surgery 09/15/19 Stan Diaz MD [address] [place] [address], [address] [place] [address] Insurance Assigned Provider 01/12/24 documented as of this encounter Additional Source Comments The information contained in this document represents components of the legal health record. It is not the complete legal health record.[facility]
--- OUTSIDE RECORDS SUMMARY | 2025-06-01 14:09 | XMS_ITS | Encounter Summary ---
Author Organization [facility] Address [address] [facility] [address] [place] [address] Phone Care Team Providers Care Third Hand Name Role Phone Stan Diaz MD Primary Care Provider + [phone] Stan Diaz MD Unavailable [phone] Jarrod Goncalves MD Unavailable + [phone] Stan Diaz MD Unavailable [phone] Encounter Details Date Type Department Care Team (Late st Contact Info) Description 10/17/2017 Ancillary Orders [address] [place] [address] Stan Diaz MD [address] [place] [address], [address] [place] [address] [email or web address] Breast screening Social History Tobacco Use Types [...] Description 06/02/2025 9:00 AM EDT Office Visit [facility] [address] [place] [address] Stan Diaz MD [address] [place] [address], [address] [place] [address] [email or web address] documented as of this encounter Results * BI MAMMOGRAM SCREENING WITH TOMOSYNTHESIS WITH CAD (BILATERAL) (10/18/2018 10:09 AM EST) Anatomical Region Laterality Modality Breast Left, Breast Right, Breast Bilateral Bila teral Mammography 10/18/2018 1:37 PM EST Impressions 10/18/2018 1:42 PM EST No mammographic signs of malignancy. Annual screening is recommended. BI-RADS CATEGORY: 1 - Negative. DENSITY: The breast tissue is almost entirely fat. POS - CDHMAMA Narrative 10/18/2018 1:42 PM EST Bilateral mammography is performed in conjunction with computed aided detection. 3-D tomography along with 2-D C view imaging was also performed. Comparison made to previous dated as far back as 09/24/2012 and as recent as 10/17/2017. No suspicious masses, areas of architectural distortion or suspicious microcalcifications. Procedure Note Carlyle Tejeda MD - 10/18/2018 Bilateral mammography is performed in conjunction with computed aideddetection. 3-D tomography along with 2-D C view imaging was alsoperformed. Comparison made to previous dated as far back as 09/24/2012 andas recent as 10/17/2017. No suspicious masses, areas of architectural distortion or suspiciousmicrocalcifications. IMPRESSION: No mammographic signs of malignancy. Annual screening is recommended. BI-RADS CATEGORY: 1 - Negative. DENSITY: The breast tissue is almost entirely fat. POS - CDHMAMA Stan Diaz MD IMG MG EXAMS Final Resu lt documented in this encounter Visit Diagnoses Diagnosis Breast screening Breast screening, unspecified Breast screening Breast screening, unspecified documented in this encounter Additional Health Concerns Infection Onset Date Last Indicated Resolved Time CoV-Risk 06/25/2021 06/29/2021 07/09/2021 1:23 AM EDT documented as of this encounter Care Teams Third Hand Relationship Specialty Start Date End Date Stan Diaz MD [address] [facility], [address] [place] [address] PCP - General 07/26/17 Stan Diaz MD [address] [facility], [address] [place] [address] Insurance Assigned Provider 09/08/17 04/19/19 Jarrod Goncalves MD [address] [address] Vascular Surgery 09/15/19 Stan Diaz MD [address] [place] [address], [address] [place] [address] Insurance Assigned Provider 01/12/24 documented as of this encounter Additional Source Comments The information contained in this document represents components of the legal health record. It is not the complete legal health record.[facility]
--- OUTSIDE RECORDS SUMMARY | 2025-06-01 14:09 | XMS_ITS | Encounter Summary ---
Author Organization [facility] Address [address] [facility] [address] [place] [address] Phone Care Team Providers Care Real Estate Services Administrator Name Role Phone Stan Diaz MD Primary Care Provider + [phone] Jarrod Goncalves MD Unavailable [phone] Stan Diaz MD Unavailable [phone] Encounter Details Date Type Department Care Team (Late st Contact Info) Description 07/27/2022 Procedure Pass [address] [address] Social History Tobacco Use Types Packs/Day Years [...] Description 06/02/2025 9:00 AM EDT Office Visit [facility] [address] [place] [address] Stan Diaz MD 22 [facility], [address] [place] [address] [email or web address] documented as of this encounter Visit Diagnoses Not on filedocumented in this encounter Additional Health Concerns Assessment Noted Time PHQ-2 Depression Total Score: 0 12/27/19 22 12:57 PM EDT documented as of this encounter Care Teams Real Estate Services Administrator Relationship Specialty Start Date End Date Stan Diaz MD [address] [place] [address], [address] [place] [address] [email or web address] PCP - General 07/26/17 Jarrod Goncalves MD [address] [address] Vascular Surgery 09/15/19 Stan Diaz MD [address] [place] [address], [address] [place] [address] [email or web address] Insurance Assigned Provider 01/12/24 documented as of this encounter Additional Source Comments The information contained in this document represents components of the legal health record. It is not the complete legal health record.[facility]
--- OUTSIDE RECORDS SUMMARY | 2025-06-01 14:09 | XMS_ITS | Encounter Summary ---
Author Organization [facility] Address [address] [facility] [address] [place] [address] Phone Care Team Providers Care Ethologist Name Role Phone Stan Diaz MD Primary Care Provider + [phone] Jarrod Goncalves MD Unavailable [phone] Stan Diaz MD Unavailable [phone] Encounter Details Date Type Department Care Team (Latest Contact Info) Description 07/28/2020 Ancillary Orders [address] [place] [address] Stan Diaz MD [address] [facility], [address] [place], [place] [id number] [email or web address] Breast cancer screening by mammogram Social History Tobacco Use Types Packs/Day Years [...] Description 06/02/2025 9:00 AM EDT Office Visit [address] [place] [address] Stan Diaz MD [address] [facility], [address] [place] [address] [email or web address] documented as of this encounter Results * BI MAMMOGRAM SCREENING WITH TOMOSYNTHESIS WITH CAD (BILATERAL) (10/22/2020 9:59 AM EST) Anatomical Region Laterality Modality Breast Left, Breast Right, Breast Bilateral Bila teral Mammography 10/22/2020 2:21 PM EST Impressions 10/22/2020 2:22 PM EST No mammographic change indicative of malignancy. Routine screening is recommended. BI-RADS CATEGORY: 1 - Negative. DENSITY: The breast tissue is almost entirely fat. Narrative 10/22/2020 2:22 PM EST Bilateral full-field digital screening mammography is obtained and read in conjunction with computer-aided detection. Tomosynthesis as well as 2-D C view imaging of both breasts in two planes also obtained. Comparison made to multiple prior, most recent October 20, 2019, and most remote October 12, 2014. No dominant mass, architectural distortion, worrisome asymmetry, or suspicious calcification is identified. No skin or nipple finding of concern is appreciated. Procedure Note Nasir Vincent MD - 10/22/2020 Bilateral full-field digital screening mammography is obtained and read inconjunction with computer-aided detection. Tomosynthesis as well as 2-D Cview imaging of both breasts in two planes also obtained. Comparison madeto multiple prior, most recent October 20, 2019, and most remote 2014. No dominant mass, architectural distortion, worrisome asymmetry, orsuspicious calcification is identified. No skin or nipple finding ofconcern is appreciated. IMPRESSION: No mammographic change indicative of malignancy. Routine screening isrecommended. BI-RADS CATEGORY: 1 - Negative. DENSITY: The breast tissue is almost entirely fat. Stan Diaz MD IMG MG EXAMS Final Resu lt documented in this encounter Visit Diagnoses Diagnosis Breast cancer screening by mammogram Breast cancer screening by mammogram documented in this encounter Additional Health Concerns Infection Onset Date Last Indicated Resolved Time CoV-Risk 06/25/2021 06/29/2021 07/09/2021 1:23 AM EDT Assessment Noted Time PHQ-2 Depression Total Score: 0 08/07/20 2:36 PM EDT documented as of this encounter Care Teams Ethologist Relationship Specialty Start Date End Date Stan Diaz MD [address] [place] [address], [address] [place] [address] [email or web address] PCP - General 07/26/17 Jarrod Goncalves MD [address] [address] Vascular Surgery 09/15/19 Stan Diaz MD [address] [place] [address], [address] [place] [address] Insurance Assigned Provider 01/12/24 documented as of this encounter Additional Source Comments The information contained in this document represents components of the legal health record. It is not the complete legal health record.[facility]
--- OUTSIDE RECORDS SUMMARY | 2025-06-01 14:09 | XMS_ITS | Encounter Summary ---
Author Organization [facility] Address [address] [facility] [address] [place] [address] Phone Care Team Providers Care Agile Scrum Master Name Role Phone Stan Diaz MD Primary Care Provider + [phone] Stan Diaz MD Unavailable [phone] Jarrod Goncalves MD Unavailable + [phone] Stan Diaz MD Unavailable [phone] Reason for Referral * MRI/CAT Scan - Closed Specialty Diagnoses / Procedures Referred By Azul coon Referred To Contact Radiology Diagnoses Bilateral numbness and tingling of arms and legs White matter disease Procedures MRI Cervical Spine Maury Colon MD Phone: tel: fax: [email or web address] Referral ID Status Reason Start Date Expiration Date Visits Re quested Visits Authorized [id number] Closed 01/08/2019 01/08/2020 1 1 Encounter Details Date Type Department Care Team (Latest Contact Info) Description 01/08/2019 Transcribe Orders Virtual Department [address] [place] [address] [phone] Maury Colon MD [address] [place] [address], [address] [place], [place] [phone] [email or web address] Bilateral numbness and tingling of arms and legs (Primary Dx); White matter disease Social History Tobacco Use Types Packs/Day Years [...] Description 06/02/2025 9:00 AM EDT Office Visit [facility] Medicine [address] [place] [address] [place] [address] Stan Diaz MD 22 [facility], [address] [place] [address] documented as of this encounter Results * MRI CERVICAL SPINE (NEURO) FOCUS WITHOUT CONTRAST (01/22/2019 3:49 PM EDT) Anatomical Region Laterality Modality C-spine Magnetic Resonan ce 01/22/2019 3:51 PM EDT Impressions 01/22/2019 4:00 PM EDT Multilevel degenerative disc disease as outlined above most significant at C4-5 in which there is mild canal stenosis and moderate bilateral neural foraminal stenosis. No large disc herniation or severe canal stenosis. POS - [id number] Narrative 01/22/2019 4:00 PM EDT COMPARISON: No prior MRI. CT neck 05/29/2017. TECHNIQUE: Exam performed on a 1.5 Carina high-field MRI scanner. Sagittal T1, T2 and STIR, axial T2* gradient echo and 3-D bright fluid sequences were obtained. MRI CERVICAL SPINE FINDINGS: Normal lordosis. Stable severe disc space narrowing from C4-5 to C6-7 with anterior wedging and endplate osteophytes. No malalignment. Mild degenerative endplate marrow edema signal changes at these levels. No bone lesions. Cord is normal in signal intensity. No cerebellar tonsil herniation. Paraspinal soft tissues are normal. C2-3: Normal. C3-4: Mild left facet arthropathy. Left uncovertebral spurring causing mild neural foraminal stenosis. C4-5: Generalized disc osteophyte complex and mild posterior ligamentous hypertrophy causing mild canal stenosis. Mild bilateral facet arthropathy and uncovertebral spurring causing moderate bilateral neural foraminal stenosis. C5-6: Small generalized disc osteophyte complex. No canal stenosis. Mild bilateral facet arthropathy and uncovertebral osteophytes causing severe right and mild left neural foraminal stenosis. C6-7: Posterior endplate spurring and moderate size left uncovertebral osteophyte causing moderate neural foraminal stenosis. C7-T1: Mild bilateral facet arthropathy and small left paracentral disc protrusion and spurring. No canal or neural foraminal stenosis. Procedure Note Kosta Hernandez MD - 01/22/2019 COMPARISON: No prior MRI. CT neck 05/29/2017. TECHNIQUE: Exam performed on a 1.5 Carina high-field MRI scanner. SagittalT1, T2 and STIR, axial T2* gradient echo and 3-D bright fluid sequenceswere obtained. MRI CERVICAL SPINE FINDINGS: Normal lordosis. Stable severe disc space narrowing from C4-5 to C6-7with anterior wedging and endplate osteophytes. No malalignment. Milddegenerative endplate marrow edema signal changes at these levels. [place] lesions. Cord is normal in signal intensity. No cerebellar tonsilherniation. Paraspinal soft tissues are normal. C2-3: Normal. C3-4: Mild left facet arthropathy. Left uncovertebral spurring causingmild neural foraminal stenosis. C4-5: Generalized disc osteophyte complex and mild posterior ligamentoushypertrophy causing mild canal stenosis. Mild bilateral facet arthropathyand uncovertebral spurring causing moderate bilateral neural foraminalstenosis. C5-6: Small generalized disc osteophyte complex. No canal stenosis.Mild bilateral facet arthropathy and uncovertebral osteophytes causingsevere right and mild left neural foraminal stenosis. C6-7: Posterior endplate spurring and moderate size left uncovertebralosteophyte causing moderate neural foraminal stenosis. C7-T1: Mild bilateral facet arthropathy and small left paracentral discprotrusion and spurring. No canal or neural foraminal stenosis. IMPRESSION: Multilevel degenerative disc disease as outlined above most significant atC4-5 in which there is mild canal stenosis and moderate bilateral neuralforaminal stenosis. No large disc herniation or severe canal stenosis. POS - [id number] Maury Colon MD IMG MR XSPECIALTY Final Resu lt documented in this encounter Visit Diagnoses Diagnosis Bilateral numbness and tingling of arms and legs- Primary White matter disease Bilateral numbness and tingling of arms and legs White matter disease documented in this encounter Additional Health Concerns Infection Onset Date Last Indicated Resolved Time CoV-Risk 06/25/2021 06/29/2021 07/09/2021 1:23 AM EDT Assessment Noted Time PHQ-2 Depression Total Score: 0 08/07/20 18 2:36 PM EDT documented as of this encounter Care Teams Agile Scrum Master Relationship Specialty Start Date End Date Stan Diaz MD [address] [place] [address], [address] [address] PCP - General 07/26/17 Stan Diaz MD [address] [place] [address], [address] [address] Insurance Assigned Provider 09/08/17 04/19/19 Jarrod Goncalves MD [facility] [address] [address] Vascular Surgery 09/15/19 Stan Diaz MD [address] [place] [address], [address] [address] Insurance Assigned Provider 01/12/24 documented as of this encounter Additional Source Comments The information contained in this document represents components of the legal health record. It is not the complete legal health record.[facility]
--- OUTSIDE RECORDS SUMMARY | 2025-06-01 14:09 | XMS_ITS | Encounter Summary ---
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; Exertional dyspnea Social History Tobacco Use [...] 06/02/2025 9:00 AM EDT Office Visit [facility] Medicine [address] [place] [address] Stan Diaz MD 22 [facility], [address] [place] [address] [email or web address] documented as of this encounter Results * NC Stress Result for Nuclear Stress Test (08/18/2019 11:55 AM EST) Max BP Systolic 170 mmHg [facility] Max BP Diastolic 70 mmHg [facility] Max HR 141 BPM [facility] Resting HR 70 BPM [facility] Resting BP Systolic 164 mmHg [facility] Resting BP Diastolic 88 mmHg [facility] Peak METS 12.2 METS [facility] Peak HR 139 BPM [facility] Anatomical Region Laterality Modality Heart Other 08/18/2019 9:40 AM EST 08/18/2019 11:56 AM EST Narrative 08/18/2019 5:00 PM EST This report represents only part of the nuclear stress test - sestamibi images will be reported separately by the Dept. of Radiology. Stress Findings Sestamibi images will be reported out separately by the Department of Radiology. This report represents only part of the nuclear stress test. Correlation of the imaging and electrocardiographic results is necessary. Since both tests have a percentage of false negatives/positives, both results must be correlated with the patient's other clinical date. Response to Stress The patient exercised for minutes seconds, achieving 12.2 METS at peak exercise. Baseline blood pressure was 164/88 mmHg, and baseline heart rate was 70 bpm. The patient achieved a peak heart rate of 139 bpm, which is% of their maximum predicted heart rate. Pt exercised for 9:39 min on a ANYA protocol achieving 12.2 METS. Test terminated due to fatigue. Baseline resting HR was 57. Max heart rate achieved was 139 (92% MPHR). 1. EKG - Baseline EKG showed normal sinus bradycardia, nonspecific ST T wave abnormalities. During exercise, there 1-2 mm horizontal to downsloping ST depressions in the inferior leads and V3-V6. 2. SYMPTOMS - no chest pain 3. EXERCISE PHYSIOLOGY - normal BP response to exercise. Good functional capacity for age. 4. ARRHYTHMIAS - few PVCs Conclusion - Abnormal stress test with EKG changes suggestive of ischemia. Nuclear images pending and will be reported separately. Dorys Chen PHARMACY INFORMATICS MANAGER with Dr Guajardo . 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 Exertional dyspnea Other dyspnea and respiratory abnormality documented in this encounter Additional Health Concerns Infection Onset Date Last Indicated Resolved Time CoV-Risk 06/25/2021 06/29/2021 07/09/2021 1:23 AM EDT Assessment Noted Time PHQ-2 Depression Total Score: 0 08/07/20 2:36 PM EDT documented as of this encounter Care Teams Laborer Hide House Relationship Specialty Start Date End Date Stan Diaz MD [address] [place] [address], [address] [place] [address] PCP - General 07/26/17 Jarrod Goncalves MD [address] [place] [address] Vascular Surgery 09/15/19 Stan Diaz MD [address] [place] [address], [address] [place] [address] Insurance Assigned Provider 01/12/24 documented as of this encounter Additional Source Comments The information contained in this document represents components of the legal health record. It is not the complete legal health record.[facility]
--- OUTSIDE RECORDS SUMMARY | 2025-06-01 14:09 | XMS_ITS | Encounter Summary ---
Author Organization [facility] Address [address] [place] [address] Phone Care Team Providers Care Copy Coordinator Name Role Phone Stan Diaz MD Primary Care Provider + [phone] Jarrod Goncalves MD Unavailable [phone] Stan Diaz MD Unavailable [phone] Encounter Details Date Type Department Care Team (Late st Contact Info) Description 07/25/2021 Procedure Pass [address] [address] Social History Tobacco Use Types Packs/Day Years [...] [facility] [address] [place] [address] Stan Diaz MD 22 [facility], [address] [place] [address] [email or web address] documented as of this encounter Visit Diagnoses Not on filedocumented in this encounter Additional Health Concerns Assessment Noted Time PHQ-2 Depression Total Score: 0 11/15/19 21 1:20 PM EST documented as of this encounter Care Teams Copy Coordinator Relationship Specialty Start Date End Date Stan Diaz MD [address] [place] [address], [address] [place] [address] [email or web address] PCP - General 07/26/17 Jarrod Goncalves MD [address] [address] Vascular Surgery 09/15/19 Stan Diaz MD [address] [place] [address], [address] [place] [address] [email or web address] Insurance Assigned Provider 01/12/24 documented as of this encounter Additional Source Comments The information contained in this document represents components of the legal health record. It is not the complete legal health record.[facility]
--- OUTSIDE RECORDS SUMMARY | 2025-06-01 14:09 | XMS_ITS | Encounter Summary ---
Author Organization [facility] Address [address] [facility] [address] [place] [address] Phone Care Team Providers Care Cane Stripper Name Role Phone Stan Diaz MD Primary Care Provider [phone]- [phone] Jarrod Goncalves MD Unavailable [phone] Stan Diaz MD Unavailable [phone] Encounter Details Date Type Department Care Team (Late st Contact Info) Description 07/31/2023 Procedure Pass [facility], [address] [address] Social History Tobacco Use Types Packs/Day Years [...] Description 06/02/2025 9:00 AM EDT Office Visit [facility] Medicine [address] [place] [address] Stan Diaz MD [address] [place] [address], [address] [address] [email or web address] documented as of this encounter Visit Diagnoses Not on filedocumented in this encounter Additional Health Concerns Assessment Noted Time PHQ-2 Depression Total Score: 0 03/30/20 23 10:47 AM EDT documented as of this encounter Care Teams Cane Stripper Relationship Specialty Start Date End Date Stan Diaz MD [address] [place] [address], [address] [place] [address] PCP - General 07/26/17 Jarrod Goncalves MD [address] [address] Vascular Surgery 09/15/19 Stan Diaz MD [address] [place] [address], [address] [place] [address] [email or web address] Insurance Assigned Provider 01/12/24 documented as of this encounter Additional Source Comments The information contained in this document represents components of the legal health record. It is not the complete legal health record.[facility]
--- OUTSIDE RECORDS SUMMARY | 2025-06-01 14:09 | XMS_ITS | Encounter Summary ---
Author Organization [facility] Address [address] [facility] [address] [place] [address] Phone Care Team Providers Care Pre Press Manager Name Role Phone Stan Diaz MD Primary Care Provider + [phone] Stna Diaz MD Unavailable [phone] Jarrod Goncalves MD Unavailable + [phone] Stan Diaz MD Unavailable [phone] Encounter Details Date Type Department Care Team (Late st Contact Info) Description 08/20/2018 Procedure Pass [facility], [address] [address] Social History Tobacco Use Types Packs/Day Years [...] Description 06/02/2025 9:00 AM EDT Office Visit [address] [address] Stan Diaz MD 22 [facility], [address] [place] [address] [email or web address] documented as of this encounter Visit Diagnoses Not on filedocumented in this encounter Additional Health Concerns Infection Onset Date Last Indicated Resolved Time CoV-Risk 06/25/2021 06/29/2021 07/09/2021 1:23 AM EDT Assessment Noted Time PHQ-2 Depression Total Score: 0 08/07/20 18 2:36 PM EDT documented as of this encounter Care Teams Pre Press Manager Relationship Specialty Start Date End Date Stan Diaz MD [address] [place] [address], [address] [place] [address] PCP - General 07/26/17 Stan Diaz MD [address] [place] [address], [address] [place] [phone] Insurance Assigned Provider 09/08/17 04/19/19 Jarrod Goncalves MD [address] [address] Vascular Surgery 09/15/19 Stan Diaz MD [address] [place] [address], [address] [place] [address] Insurance Assigned Provider 01/12/24 documented as of this encounter Additional Source Comments The information contained in this document represents components of the legal health record. It is not the complete legal health record.[facility]
--- OUTSIDE RECORDS SUMMARY | 2025-06-01 14:09 | XMS_ITS | Encounter Summary ---
Author Organization [facility] Address [address] [place] [address] [place] [address] Phone Care Team Providers Care Haul Truck Driver Name Role Phone Stan Diaz MD Primary Care Provider + [phone] Stan Diaz MD Unavailable [phone] Jarrod Goncalves MD Unavailable + [phone] Stan Diaz MD Unavailable [phone] Reason for Referral * MRI/CAT Scan - Closed Specialty Diagnoses / Procedures Referred By Azul coon Referred To Contact Radiology Diagnoses White matter disease Ataxia Numbness Procedures MRI Brain Maury Colon MD Phone: tel: fax: [email or web address] Referral ID Status Reason Start Date Expiration Date Visits Re quested Visits Authorized [id number] Closed 08/20/2018 08/20/2019 1 1 Encounter Details Date Type Department Care Team (Late st Contact Info) Description 08/20/2018 Ancillary Orders Virtual Department [address] [place] [address] Maury Colon MD [address] [place] [address], [address] [place] [address] [email or web address] White matter disease; Ataxia; Numbness Social History Tobacco Use Types Packs/Day Years [...] Description 06/02/2025 9:00 AM EDT Office Visit [address] [place] [address] Stan Diaz MD 22 [facility], [address] [place] [address] [email or web address] documented as of this encounter Results * MRI BRAIN WITHOUT CONTRAST (09/02/2018 7:22 PM EST) Anatomical Region Laterality Modality Head Magnetic Resonan ce 09/02/2018 7:27 PM EST Impressions 09/02/2018 7:47 PM EST There may be a few new lesions but the vast majority appear to be present previously. There does appear to be some progression of some of the lesions in terms of size and intensity but no marked change has occurred since the prior study of 2014. No mass or hemorrhage identified and no changes of infarction are seen. Generalized volume loss is similar to prior. 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 COMPARISON: August 05, 2015. TECHNIQUE: Exam performed on a 1.5 Carina high-field MRI scanner. Axial T1, T2, T2*, T2 FLAIR and diffusion-weighted imaging with ADC map, sagittal T1 and T2 FLAIR sequences were obtained. FINDINGS: Multiple white matter lesions are again noted. There is suggestion that a few may be new. The vast majority of lesions appear to be present either on the sagittal or axial T2 FLAIR sequences. Several appear larger and more intense than on prior imaging suggesting some local progression of previously present lesions more than increase in number of lesions. No prominent progressive white matter volume loss. No areas of restricted diffusion. No abnormal intra or extra-axial blood or fluid collection, mass, or mass effect is identified. Pituitary not enlarged. Cerebellar tonsils not ectopic. No gross orbital lesion. No fluid in paranasal sinuses. There appear to be preserved flow voids in the major intracranial arteries and veins. 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 COMPARISON: August 05, 2015. TECHNIQUE: Exam performed on a 1.5 Carina high-field MRI scanner. Axial T1,T2, T2*, T2 FLAIR and diffusion-weighted imaging with ADC map, sagittal T1and T2 FLAIR sequences were obtained. FINDINGS: Multiple white matter lesions are again noted. There is suggestion that afew may be new. The vast majority of lesions appear to be present eitheron the sagittal or axial T2 FLAIR sequences. Several appear larger andmore intense than on prior imaging suggesting some local progression ofpreviously present lesions more than increase in number of lesions. Noprominent progressive white matter volume loss. No areas of restricteddiffusion. No abnormal intra or extra-axial blood or fluid collection,mass, or mass effect is identified. Pituitary not enlarged. Cerebellartonsils not ectopic. No gross orbital lesion. No fluid in paranasalsinuses. There appear to be preserved flow voids in the major intracranialarteries and veins. IMPRESSION: There may be a few new lesions but the vast majority appear to be presentpreviously. There does appear to be some progression of some of thelesions in terms of size and intensity but no marked change has occurredsince the prior study of 2014. No mass or hemorrhage identified and nochanges of infarction are seen. Generalized volume loss is similar toprior. POS - [id number] Edited by: Emeli Sarabia on 09/02/2018 7:40 PM us Maury Colon MD IMG MR HEAD/NECK Final Resul t documented in this encounter Visit Diagnoses Diagnosis White matter disease Ataxia Lack of coordination Numbness Disturbance of skin sensation White matter disease Ataxia Lack of coordination Numbness Disturbance of skin sensation documented in this encounter Additional Health Concerns Infection Onset Date Last Indicated Resolved Time CoV-Risk 06/25/2021 06/29/2021 07/09/2021 1:23 AM EDT Assessment Noted Time PHQ-2 Depression Total Score: 0 08/07/20 18 2:36 PM EDT documented as of this encounter Care Teams Haul Truck Driver Relationship Specialty Start Date End Date Stan Diaz MD 22 [facility], [address] [place] [address] PCP - General 07/26/17 Stan Diaz MD [address] [place] [address], [address] [place] [address] Insurance Assigned Provider 09/08/17 04/19/19 Jarrod Goncalves MD [address] [address] Vascular Surgery 09/15/19 Stan Diaz MD [address] [place] [address], [address] [place] [address] Insurance Assigned Provider 01/12/24 documented as of this encounter Additional Source Comments The information contained in this document represents components of the legal health record. It is not the complete legal health record.[facility]
--- OUTSIDE RECORDS SUMMARY | 2025-06-01 14:09 | XMS_ITS | Encounter Summary ---
Author Organization [facility] Address [address] [facility] [address] [place] [address] Phone Care Team Providers Care Lime Boiler Name Role Phone Stan Diaz MD Primary Care Provider + [phone] Stan Diaz MD Unavailable [phone] Jarrod Goncalves MD Unavailable + [phone] Stan Diaz MD Unavailable [phone] Encounter Details Date Type Department Care Team (Latest Contact Info) Description 09/06/2017 Ancillary Orders [address] [place] [address] Stan Diaz MD [address] [place] [address], [address] [place] [address] [email or web address] Screening breast examination Social History Tobacco Use Types Packs/Day Years Used Date Smoking Tobacco: Never Assessed Comments Unknown Sex and Gender Information Value Date Recorded Sex Assigned at Female 06/25/2021 8:57 AM EDT Legal Sex Female 10:02 PM EDT Gender Identity Female 06/25/2021 8:57 AM EDT Sexual Orientation Not on file documented as of this encounter Plan of Treatment Upcoming Encounters Date Type Department Care Team (Late st Contact Info) Description 06/02/2025 9:00 AM EDT Office Visit [address] [place] [address] Stan Diaz MD [address] [place] [address], [address] [place] [address] [email or web address] documented as of this encounter Results * BI MAMMOGRAM SCREENING WITH TOMOSYNTHESIS WITH CAD (BILATERAL) (10/17/2017 12:44 PM EST) Anatomical Region Laterality Modality Breast Left, Breast Right, Breast Bilateral Bila teral Mammography 10/17/2017 1:11 PM EST Impressions 10/17/2017 1:14 PM EST Stable appearance relative to prior imaging. No findings suggestive of malignancy are seen. BI-RADS CATEGORY: 2 - Benign finding. DENSITY: There are scattered fibroglandular densities. POS - [id number] Narrative 10/17/2017 1:14 PM EST Full-field digital mammography is obtained with computer-aided detection. Comparison with prior imaging from 10/16/2016 is made with older imaging dating back as far as 09/12/2011 also reviewed. There is scattered fibroglandular density evident in the breasts. In addition to 2-D C view imaging, tomosynthesis images are obtained in two projections of each breast. There is a small 3 to 4 mm density in the outer left breast which is unchanged.. No dominant soft tissue mass of concern, suspicious cluster of calcifications, significant interval skin changes, or architectural distortion is identified. Procedure Note Trace Freed MD - 10/17/2017 Full-field digital mammography is obtained with computer-aided detection.Comparison with prior imaging from 10/16/2016 is made with older imagingdating back as far as 09/12/2011 also reviewed. There is scattered fibroglandular density evident in the breasts. Inaddition to 2-D C view imaging, tomosynthesis images are obtained in twoprojections of each breast. There is a small 3 to 4 mm density in the outer left breast which isunchanged.. No dominant soft tissue mass of concern, suspicious clusterof calcifications, significant interval skin changes, or architecturaldistortion is identified. IMPRESSION: Stable appearance relative to prior imaging. No findings suggestive ofmalignancy are seen. BI-RADS CATEGORY: 2 - Benign finding. DENSITY: There are scattered fibroglandular densities. POS - [id number] Stan Diaz MD IMG MG EXAMS Final Resu lt documented in this encounter Visit Diagnoses Diagnosis Screening breast examination Other screening breast examination Screening breast examination Other screening breast examination documented in this encounter Additional Health Concerns Infection Onset Date Last Indicated Resolved Time CoV-Risk 06/25/2021 06/29/2021 07/09/2021 1:23 AM EDT documented as of this encounter Care Teams Lime Boiler Relationship Specialty Start Date End Date Stan Diaz MD [address] [place] [address] PCP - General 07/26/17 Stan Diaz MD [address] [place] [address] Insurance Assigned Provider 09/08/17 04/19/19 Jarrod Goncalves MD [facility] [address] [address] Vascular Surgery 09/15/19 Stan Diaz MD [address] [place] [address] Insurance Assigned Provider 01/12/24 documented as of this encounter Additional Source Comments The information contained in this document represents components of the legal health record. It is not the complete legal health record.[facility]
== END 2025-06-02 10:45 | disposition home or self-care (01) ==
LOC: HO.HMGAL 12:58
PROVIDERS: PCP Family Medicine; Visit Provider Registered Nurse Emergency
DX: J30.89 Other allergic rhinitis (principal)
CPT/HCPCS: 95117; 95165

== ENCOUNTER 2025-07-01 08:55 | Outpatient (AMB) | payer MEDICARE, OTHER, SELFPAY ==
--- OUTSIDE RECORDS SUMMARY | 2025-07-01 10:28 | XMS_ITS | Encounter Summary ---
Author Organization [facility] Address [address] [place] [address] Phone Care Team Providers Care Pile Operator Name Role Phone Stan Diaz MD Primary Care Provider + [phone] Jarrod Goncalves MD Unavailable [phone] Stan Diaz MD Unavailable [phone] Encounter Details Date Type Department Care Team (Late st Contact Info) Description 07/27/2022 Procedure Pass [address] [address] Social History Tobacco Use Types Packs/Day Years [...] Care Team (Late st Contact Info) Description 12/21/2025 9:00 AM EDT Office Visit [facility] Family Medicine [address] [place] [address] Stan Diaz MD [address] [facility], [address] [place] [address] [email or web address] documented as of this encounter Visit Diagnoses Not on filedocumented in this encounter Additional Health Concerns Assessment Noted Time PHQ-2 Depression Total Score: 0 12/27/19 22 12:57 PM EDT documented as of this encounter Care Teams Pile Operator Relationship Specialty Start Date End Date Stan Diaz MD [address] [place] [address], [address] [place] [address] [email or web address] PCP - General 07/26/17 Jarrod Goncalves MD [address] [address] Vascular Surgery 09/15/19 Stan Diaz MD [address] [place] [address], [address] [place] [address] [email or web address] Insurance Assigned Provider 01/12/24 documented as of this encounter Additional Source Comments The information contained in this document represents components of the legal health record. It is not the complete legal health record.[facility]
--- OUTSIDE RECORDS SUMMARY | 2025-07-01 10:28 | XMS_ITS | Encounter Summary ---
Author Organization [facility] Address [address] [facility] [address] [place] [address] Phone Care Team Providers Care Shear Operator Helper Name Role Phone Stan Diaz MD Primary Care Provider + [phone] Jarrod Goncalves MD Unavailable + [phone] Stan Diaz MD Unavailable [phone] Encounter Details Date Type Department Care Team (Latest Contact Info) Description 09/15/2022 Ancillary Orders Non-Invasive Cardiology [address] [place] [address] Stan Diaz MD 22 [facility], [address] [place], [place] [id number] [email or web address] Coronary artery calcification of mohegan artery; Exertional dyspnea Social History Tobacco Use [...] Description 12/21/2025 9:00 AM EDT Office Visit [facility] Medicine [address] [address] Stan Diaz MD [address] [facility], [address] [place] [address] [email or web address] documented as of this encounter Results * NC Stress Result for Nuclear Stress Test (09/15/2022 11:22 AM EST) Max BP Systolic 178 mmHg [facility] Max BP Diastolic 82 mmHg [facility] Max HR 139 BPM [facility] Resting HR 67 BPM [facility] Resting BP Systolic 150 mmHg [facility] Resting BP Diastolic 80 mmHg [facility] Peak METS 11.7 METS [facility] Peak HR 139 BPM [facility] Anatomical Region Laterality Modality Heart Other 09/15/2022 [...] Visit Diagnoses Diagnosis Coronary artery calcification of mohegan artery Exertional dyspnea Other dyspnea and respiratory abnormality Coronary artery calcification of mohegan artery Exertional dyspnea Other dyspnea and respiratory abnormality documented in this encounter Additional Health Concerns Assessment Noted Time PHQ-2 Depression Total Score: 0 12/27/19 22 12:57 PM EDT documented as of this encounter Care Teams Shear Operator Helper Relationship Specialty Start Date End Date Stan Diaz MD [address] [facility], [address] [place] [address] [email or web address] PCP - General 07/26/17 Jarrod Goncalves MD [address] [address] Vascular Surgery 09/15/19 Stan Diaz MD [address] [facility], [address] [place] [address] [email or web address] Insurance Assigned Provider 01/12/24 documented as of this encounter Additional Source Comments The information contained in this document represents components of the legal health record. It is not the complete legal health record.[facility]
--- OUTSIDE RECORDS SUMMARY | 2025-07-01 10:29 | XMS_ITS | Encounter Summary ---
Author Organization [facility] Address [address] [facility] [address] [place] [address] Phone Care Team Providers Care Transportation Coordinator Name Role Phone Stan Diaz MD Primary Care Provider + [phone] Jarrod Goncalves MD Unavailable [phone] Stan Diaz MD Unavailable [phone] Encounter Details Date Type Department Care Team (Latest Contact Info) Description 07/28/2020 Ancillary Orders [address] [place] [address] Stan Diaz MD [address] [facility], [address] [place] [address] [email or web address] Breast cancer screening by mammogram Social [...] Description 12/21/2025 9:00 AM EDT Office Visit [address] [place] [address] Stan Diaz MD [address] [facility], [address] [place] [address] [email or web address] documented as of this encounter Results * [...] documented as of this encounter Care Teams Transportation Coordinator Relationship Specialty Start Date End Date Stan Diaz MD [address] [place] [address], [address] [place] [address] [email or web address] PCP - General 07/26/17 Jarrod Goncalves MD [address] [address] Vascular Surgery 09/15/19 Stan Diaz MD [address] [place] [address], [address] [place] [address] Insurance Assigned Provider 01/12/24 documented as of this encounter Additional Source Comments The information contained in this document represents components of the legal health record. It is not the complete legal health record.[facility]
--- OUTSIDE RECORDS SUMMARY | 2025-07-01 10:29 | XMS_ITS | Encounter Summary ---
Author Organization [facility] Address [address] [facility] [address] [place] [address] Phone Care Team Providers Care Phlebotomy Manager Name Role Phone Stan Diaz MD Primary Care Provider + [phone] Jarrod Goncalves MD Unavailable [phone] Stan Diaz MD Unavailable [phone] Encounter Details Date Type Department Care Team (Late st Contact Info) Description 12/30/2021 Procedure Pass [facility] Admitting Dept Virtual Department [address] [place] [address] Social History Tobacco Use Types Packs/Day Years [...] Description 12/21/2025 9:00 AM EDT Office Visit [facility] Family Medicine [address] [place] [address] Stan Diaz MD 22 [facility], [address] [place] [address] [email or web address] documented as of this encounter Visit Diagnoses Not on filedocumented in this encounter Additional Health Concerns Assessment Noted Time PHQ-2 Depression Total Score: 0 12/27/19 22 12:57 PM EDT documented as of this encounter Care Teams Phlebotomy Manager Relationship Specialty Start Date End Date Stan Diaz MD [address] [place] [address], [address] [place] [address] [email or web address] PCP - General 07/26/17 Jarrod Goncalves MD [address] [address] Vascular Surgery 09/15/19 Stan Diaz MD [address] [place] [address], [address] [place] [address] [email or web address] Insurance Assigned Provider 01/12/24 documented as of this encounter Additional Source Comments The information contained in this document represents components of the legal health record. It is not the complete legal health record.[facility]
--- OUTSIDE RECORDS SUMMARY | 2025-07-01 10:29 | XMS_ITS | Encounter Summary ---
Author Organization [facility] Address [address] [facility] [address] [place] [address] Phone Care Team Providers Care Health Insurance Assessor Name Role Phone Stan Diaz MD Primary Care Provider +- [phone] Jarrod Goncalves MD Unavailable [phone] Stan Diaz MD Unavailable [phone] Encounter Details Date Type Department Care Team (Late st Contact Info) Description 09/26/2024 Procedure Pass [facility], [address] [address] Social History Tobacco Use Types Packs/Day Years [...] Description 12/21/2025 9:00 AM EDT Office Visit [facility] Family Medicine [address] [place] [address] Stan Diaz MD 22 [facility], [address] [address] [email or web address] documented as of this encounter Visit Diagnoses Not on filedocumented in this encounter Additional Health Concerns Assessment Noted Time PHQ-2 Depression Total Score: 0 10/22/19 25 11:06 AM EST documented as of this encounter Care Teams Health Insurance Assessor Relationship Specialty Start Date End Date Stan Diaz MD [address] [place] [address], [address] [place] [address] PCP - General 07/26/17 Jarrod Goncalves MD [address] [address] Vascular Surgery 09/15/19 Stan Diaz MD [address] [place] [address], [address] [place] [address] Insurance Assigned Provider 01/12/24 documented as of this encounter Additional Source Comments The information contained in this document represents components of the legal health record. It is not the complete legal health record.[facility]
--- OUTSIDE RECORDS SUMMARY | 2025-07-01 10:29 | XMS_ITS | Encounter Summary ---
Author Organization [facility] Address [address] [facility] [address] [place] [address] Phone Care Team Providers Care Lineman Service Or Work Dispatcher Name Role Phone Stan Diaz MD Primary Care Provider + [phone] Stan Diaz MD Unavailable [phone] Jarrod Goncalves MD Unavailable + [phone] Stan Diaz MD Unavailable [phone] Reason for Referral * MRI/CAT Scan - Closed Specialty Diagnoses / Procedures Referred By Azul coon Referred To Contact Radiology Diagnoses Bilateral numbness and tingling of arms and legs White matter disease Procedures MRI Cervical Spine Maury Colon MD Phone: tel: fax: [email or web address] Here Referral ID Status Reason Start Date Expiration Date Visits Re quested Visits Authorized [id number] Closed 01/08/2019 01/08/2020 1 1 Encounter Details Date Type Department Care Team (Latest Contact Info) Description 01/08/2019 Transcribe Orders Virtual Department [address] [place] [id number] Maury Colon MD [address] [place] [address], [address] [place], [place] [id number] [email or web address] Bilateral numbness and tingling of arms [...] Description 12/21/2025 9:00 AM EDT Office Visit [facility] Medicine [address] [place] [address] [place] [address] Stan Diaz MD 22 [facility], [address] [place] [address] documented as of this encounter Results * [...] herniation or severe canal stenosis. POS - [id number] Narrative 01/22/2019 4:00 PM EDT COMPARISON: No [...] herniation or severe canal stenosis. POS - [id number] Maury Colon MD IMG MR XSPECIALTY Final [...] documented as of this encounter Care Teams Lineman Service Or Work Dispatcher Relationship Specialty Start Date End Date Stan Diaz MD [address] [place] [address], [address] [address] PCP - General 07/26/17 Stan Diaz MD [address] [place] [address], [address] [address] Insurance Assigned Provider 09/08/17 04/19/19 Jarrod Goncalves MD [facility] [address] [address] Vascular Surgery 09/15/19 Stan Diaz MD [address] [place] [address], [address] [address] Insurance Assigned Provider 01/12/24 documented as of this encounter Additional Source Comments The information contained in this document represents components of the legal health record. It is not the complete legal health record.[facility]
--- OUTSIDE RECORDS SUMMARY | 2025-07-01 10:29 | XMS_ITS | Encounter Summary ---
Author Organization [facility] Address [address] [facility] [address] [place] [address] Phone Care Team Providers Care Transverse Abdominal Muscle Nurse Name Role Phone Stan Diaz MD Primary Care Provider + [phone] Stan Diaz MD Unavailable [phone] Jarrod Goncalves MD Unavailable + [phone] Stan Diaz MD Unavailable [phone] Encounter Details Date Type Department Care Team (Latest Contact Info) Description 09/06/2017 Ancillary Orders [address] [place] [address] Stan Diaz MD [address] [place] [address], [address] [place] [address] [email or web address] Screening breast examination Social History [...] Description 12/21/2025 9:00 AM EDT Office Visit [address] [place] [address] Stan Diaz MD [address] [place] [address], [address] [place] [address] [email or web address] documented as of this encounter Results * [...] There are scattered fibroglandular densities. POS - [id number] Narrative 10/17/2017 1:14 PM EST Full-field digital [...] There are scattered fibroglandular densities. POS - [id number] Stan Diaz MD IMG MG EXAMS Final Resu lt documented in this encounter Visit Diagnoses Diagnosis Screening breast examination Other screening breast examination Screening breast examination Other screening breast examination documented in this encounter Additional Health Concerns Infection Onset Date Last Indicated Resolved Time CoV-Risk 06/25/2021 06/29/2021 07/09/2021 1:23 AM EDT documented as of this encounter Care Teams Transverse Abdominal Muscle Nurse Relationship Specialty Start Date End Date Stan Diaz MD [address] [place] [address] PCP - General 07/26/17 Stan Diaz MD [address] [place] [address] Insurance Assigned Provider 09/08/17 04/19/19 Jarrod Goncalves MD [facility] [address] [address] Vascular Surgery 09/15/19 Stan Diaz MD [address] [place] [address] Insurance Assigned Provider 01/12/24 documented as of this encounter Additional Source Comments The information contained in this document represents components of the legal health record. It is not the complete legal health record.[facility]
--- OUTSIDE RECORDS SUMMARY | 2025-07-01 10:29 | XMS_ITS | Encounter Summary ---
Author Organization [facility] Address [address] [place] [address] [place] [address] Phone Care Team Providers Care Wooden Fence Erector Name Role Phone Stan Diaz MD Primary Care Provider + [phone] Stan Diaz MD Unavailable [phone] Jarrod Goncalves MD Unavailable + [phone] Stan Diaz MD Unavailable [phone] Reason for Referral * MRI/CAT Scan - Closed Specialty Diagnoses / Procedures Referred By Azul coon Referred To Contact Radiology Diagnoses White matter disease Ataxia Numbness Procedures MRI Brain Maury Colon MD Phone: tel: fax: mailto: Referral ID Status Reason Start Date Expiration Date Visits Re quested Visits Authorized [id number] Closed 08/20/2018 08/20/2019 1 1 Encounter Details Date Type Department Care Team (Late st Contact Info) Description 08/20/2018 Ancillary Orders Virtual Department [address] [place] [address] Maury Colon MD [address] [place] [address], [address] [place] [address] [email or web address] White matter disease; Ataxia; Numbness [...] Description 12/21/2025 9:00 AM EDT Office Visit [address] [place] [address] Stan Diaz MD 22 [facility], [address] [place] [address] [email or web address] documented as of this encounter Results * [...] loss is similar to prior. POS - [id number] Edited by: Emeli Sarabia on 09/02/2018 7:40 PM Narrative 09/02/2018 7:47 PM EST HISTORY: White matter disease, ataxia, numbness, decreasing right correspondence review clerk. COMPARISON: August 05, 2015. TECHNIQUE: Exam performed [...] White matter disease, ataxia, numbness, decreasing right correspondence review clerk. COMPARISON: August 05, 2015. TECHNIQUE: Exam performed [...] volume loss is similar toprior. POS - [id number] Edited by: Emeli Sarabia on 09/02/2018 7:40 [...] documented as of this encounter Care Teams Wooden Fence Erector Relationship Specialty Start Date End Date Stan Diaz MD 22 [facility], [address] [place] [address] PCP - General 07/26/17 Stan Diaz MD [address] [place] [address], [address] [place] [address] Insurance Assigned Provider 09/08/17 04/19/19 Jarrod Goncalves MD [address] [address] Vascular Surgery 09/15/19 Stan Diaz MD [address] [place] [address], [address] [place] [address] Insurance Assigned Provider 01/12/24 documented as of this encounter Additional Source Comments The information contained in this document represents components of the legal health record. It is not the complete legal health record.[facility]
--- OUTSIDE RECORDS SUMMARY | 2025-07-01 10:29 | XMS_ITS | Encounter Summary ---
Author Organization [facility] Address [address] [facility] [address] [place] [address] Phone Care Team Providers Care Android Framework Developer Name Role Phone Stan Diaz MD Primary Care Provider + [phone] Stan Diaz MD Unavailable [phone] Jarrod Goncalves MD Unavailable + [phone] Stan Diaz MD Unavailable [phone] Encounter Details Date Type Department Care Team (Late st Contact Info) Description 10/17/2017 Ancillary Orders [address] [place] [address] Stan Diaz MD [address] [place] [address], [address] [place] [address] [email or web address] Breast screening Social History [...] Description 12/21/2025 9:00 AM EDT Office Visit [facility] [address] [place] [address] Satn Diaz MD [address] [place] [address], [address] [place] [address] [email or web address] documented as of this encounter Results * [...] documented as of this encounter Care Teams Android Framework Developer Relationship Specialty Start Date End Date Stan Diaz MD [address] [facility], [address] [place] [address] PCP - General 07/26/17 Stan Diaz MD [address] [facility], [address] [place] [address] Insurance Assigned Provider 09/08/17 04/19/19 Jarrod Goncalves MD [address] [address] Vascular Surgery 09/15/19 Stan Diaz MD [address] [place] [address], [address] [place] [address] Insurance Assigned Provider 01/12/24 documented as of this encounter Additional Source Comments The information contained in this document represents components of the legal health record. It is not the complete legal health record.[facility]
--- OUTSIDE RECORDS SUMMARY | 2025-07-01 10:29 | XMS_ITS | Encounter Summary ---
Author Organization [facility] Address [address] [facility] [address] [place] [address] Phone Care Team Providers Care Corn Husker Machine Operator Name Role Phone Stan Diaz MD Primary Care Provider + [phone] Jarrod Goncalves MD Unavailable [phone] Stan Diaz MD Unavailable [phone] Encounter Details Date Type Department Care Team (Late st Contact Info) Description 07/28/2020 Procedure Pass [address] [address] Social History Tobacco Use Types Packs/Day Years [...] Description 12/21/2025 9:00 AM EDT Office Visit [facility] Medicine [address] [place] [address] Stan Diaz MD 22 [facility], [address] [place] [address] documented as of this encounter Visit Diagnoses Not on filedocumented in this encounter Additional Health Concerns Infection Onset Date Last Indicated Resolved Time CoV-Risk 06/25/2021 06/29/2021 07/09/2021 1:23 AM EDT Assessment Noted Time PHQ-2 Depression Total Score: 0 08/07/20 2:36 PM EDT documented as of this encounter Care Teams Corn Husker Machine Operator Relationship Specialty Start Date End Date Stan Diaz MD [address] [place] [address], [address] [place] [address] PCP - General 07/26/17 Jarrod Goncalves MD [address] [address] Vascular Surgery 09/15/19 Stan Diaz MD [address] [place] [address], [address] [place] [address] Insurance Assigned Provider 01/12/24 documented as of this encounter Additional Source Comments The information contained in this document represents components of the legal health record. It is not the complete legal health record.[facility]
--- OUTSIDE RECORDS SUMMARY | 2025-07-01 10:29 | XMS_ITS | Encounter Summary ---
Author Organization [facility] Address [address] [facility] [address] [place] [address] Phone Care Team Providers Care Night Shift Name Role Phone Stan Diaz MD Primary Care Provider + [phone] Jarrod Goncalves MD Unavailable [phone] Stan Diaz MD Unavailable [phone] Encounter Details Date Type Department Care Team (Latest Contact Info) Description 08/18/2019 Ancillary Orders Non-Invasive Cardiology [address] [place] [address] Stan Diaz MD 22 [facility], [address] [place], [place] [id number] [email or web address] Coronary artery calcification of unga artery; Exertional dyspnea Social History Tobacco Use [...] 12/21/2025 9:00 AM EDT Office Visit [facility] [address] [place] [address] Stan Diaz MD [address] [facility], [address] [place] [address] [email or web address] documented as of this encounter Results * NC Stress Result for Nuclear Stress Test (08/18/2019 11:55 AM EST) Max BP Systolic 170 mmHg [facility] Max BP Diastolic 70 mmHg [facility] Max HR 141 BPM [facility] Resting HR 70 BPM [facility] Resting BP Systolic 164 mmHg [facility] Resting BP Diastolic 88 mmHg [facility] Peak METS 12.2 METS [facility] Peak HR 139 BPM [facility] Anatomical Region Laterality Modality Heart Other [...] and will be reported separately. Dorys Chen COATING ENGINEER with Dr Guajardo . us Stan Diaz MD CV NM CARDIAC Final Resu lt documented in this encounter Visit Diagnoses Diagnosis Coronary artery calcification of unga artery Exertional dyspnea Other dyspnea and respiratory abnormality Coronary artery calcification of unga artery Exertional dyspnea Other dyspnea and respiratory abnormality documented in this encounter Additional Health Concerns Infection Onset Date Last Indicated Resolved Time CoV-Risk 06/25/2021 06/29/2021 07/09/2021 1:23 AM EDT Assessment Noted Time PHQ-2 Depression Total Score: 0 08/07/20 2:36 PM EDT documented as of this encounter Care Teams Night Shift Relationship Specialty Start Date End Date Stan Diaz MD [address] [place] [address], [address] [place] [address] PCP - General 07/26/17 Jarrod Goncalves MD [address] [place] [address] Vascular Surgery 09/15/19 Stan Diaz MD [address] [place] [address], [address] [place] [address] Insurance Assigned Provider 01/12/24 documented as of this encounter Additional Source Comments The information contained in this document represents components of the legal health record. It is not the complete legal health record.[facility]
--- OUTSIDE RECORDS SUMMARY | 2025-07-01 10:29 | XMS_ITS | Encounter Summary ---
Author Organization [facility] Address [address] [place] [address] Phone Care Team Providers Care Landscape Supervisor Name Role Phone Stan Diaz MD Primary Care Provider [phone]- [phone] Jarrod Goncalves MD Unavailable [phone] Stan Diaz MD Unavailable [phone] Encounter Details Date Type Department Care Team (Late st Contact Info) Description 07/31/2023 Procedure Pass [facility], [address] [address] Social History Tobacco Use Types Packs/Day Years [...] Description 12/21/2025 9:00 AM EDT Office Visit [facility] Medicine 22 [place] [address] Stan Diaz MD [address] [place] [address], [address] [address] Cell documented as of this encounter Visit Diagnoses Not on filedocumented in this encounter Additional Health Concerns Assessment Noted Time PHQ-2 Depression Total Score: 0 03/30/20 23 10:47 AM EDT documented as of this encounter Care Teams Landscape Supervisor Relationship Specialty Start Date End Date Stan Diaz MD [address] [place] [address], [address] [place] [address] PCP - General 07/26/17 Jarrod Goncalves MD [address] [address] Vascular Surgery 09/15/19 Stan Diaz MD [address] [place] [address], [address] [place] [address] Insurance Assigned Provider 01/12/24 documented as of this encounter Additional Source Comments The information contained in this document represents components of the legal health record. It is not the complete legal health record.[facility]
--- OUTSIDE RECORDS SUMMARY | 2025-07-01 10:29 | XMS_ITS | Encounter Summary ---
Author Organization [facility] Address [address] [facility] [address] [place] [address] Phone Care Team Providers Care Supervisor Special Effects Name Role Phone Stan Diaz MD Primary Care Provider + [phone] Stan Diaz MD Unavailable [phone] Jarrod Goncalves MD Unavailable [phone] Stan Diaz MD Unavailable [phone] Encounter Details Date Type Department Care Team (Late st Contact Info) Description 01/08/2019 Procedure Pass [facility], [address] [address] Social History Tobacco Use Types Packs/Day Years [...] Description 12/21/2025 9:00 AM EDT Office Visit [address] [address] Stan Diaz MD 22 [facility], [address] [place] [address] [email or web address] documented as of this encounter Visit Diagnoses Not on filedocumented in this encounter Additional Health Concerns Infection Onset Date Last Indicated Resolved Time CoV-Risk 06/25/2021 06/29/2021 07/09/2021 1:23 AM EDT Assessment Noted Time PHQ-2 Depression Total Score: 0 08/07/20 18 2:36 PM EDT documented as of this encounter Care Teams Supervisor Special Effects Relationship Specialty Start Date End Date Stan Diaz MD [address] [place] [address], [address] [place] [address] PCP - General 07/26/17 Stan Diaz MD [address] [place] [address], [address] [place] [address] Insurance Assigned Provider 09/08/17 04/19/19 Jarrod Goncalves MD [address] [address] Vascular Surgery 09/15/19 Stan Diaz MD [address] [place] [address], [address] [place] [address] Insurance Assigned Provider 01/12/24 documented as of this encounter Additional Source Comments The information contained in this document represents components of the legal health record. It is not the complete legal health record.[facility]
--- OUTSIDE RECORDS SUMMARY | 2025-07-01 10:29 | XMS_ITS | Encounter Summary ---
Author Organization [facility] Address [address] [facility] [address] [place] [address] Phone Care Team Providers Care Feather Mixer Name Role Phone Stan Diaz MD Primary Care Provider + [phone] Stan Diaz MD Unavailable [phone] Jarrod Goncalves MD Unavailable + [phone] Satn Diaz MD Unavailable [phone] Encounter Details Date Type Department Care Team (Late st Contact Info) Description 08/20/2018 Procedure Pass [facility], [address] [address] Social History Tobacco Use Types Packs/Day Years [...] Description 12/21/2025 9:00 AM EDT Office Visit [address] [address] Stan Diaz MD 22 [facility], [address] [place] [address] [email or web address] documented as of this encounter Visit Diagnoses Not on filedocumented in this encounter Additional Health Concerns Infection Onset Date Last Indicated Resolved Time CoV-Risk 06/25/2021 06/29/2021 07/09/2021 1:23 AM EDT Assessment Noted Time PHQ-2 Depression Total Score: 0 08/07/20 18 2:36 PM EDT documented as of this encounter Care Teams Feather Mixer Relationship Specialty Start Date End Date Stan Diaz MD [address] [place] [address], [address] [place] [address] PCP - General 07/26/17 Stan Diaz MD [address] [place] [address], [address] [place] [address] Insurance Assigned Provider 09/08/17 04/19/19 Jarrod Goncalves MD [address] [address] Vascular Surgery 09/15/19 Stan Diaz MD [address] [place] [address], [address] [place] [address] Insurance Assigned Provider 01/12/24 documented as of this encounter Additional Source Comments The information contained in this document represents components of the legal health record. It is not the complete legal health record.[facility]
--- OUTSIDE RECORDS SUMMARY | 2025-07-01 10:29 | XMS_ITS | Clinical Summary ---
Author Organization [facility] Address [address] [place] [address] Phone Care Team Providers Care String Top Sealer Name Role Phone Stan Diaz MD Primary Care Provider [phone] Jarrod Goncalves MD Unavailable Stan Diaz MD Unavailable [phone] Allergies Active Allergy Reactions Criticality Noted Date Comments Morphine Itching 05/18/2017 Opioids-Meperidine And Related 08/07 Oxycodone-Acetaminophen Unknown 05/18/2017 Sulfa (Sulfonamide Antibiotics) Rash Low 05/08 Enalapril Maleate Rash Low 05/18/2017 Medications aspirin 81 mg chewable tablet Take 1 tablet by mouth daily. 016 Active cyanocobalamin, vitamin B-12, 1,000 mcg Subl sublingual tablet Take 1 tablet by mouth every other day. 013 Active cholecalciferol, vitamin D3, 25 mcg (1,000 unit) capsule Take 1,000 Units by mouth daily. daily Active polyethylene glycol (MIRALAX) 17 gram packet Take 0.4 g/kg by mouth daily. Active traMADoL (ULTRAM) 50 mg tablet Take 50 mg by mouth every 6 (six) hours as needed. 023 Active desonide (DESOWEN) 0.05 % ointment Apply 0.05 Applications topically as needed. 024 Active coenzyme Q10 200 mg capsule Take 200 mg by mouth daily. Active ketoconazole 2 % cream Apply 2 Applications topically as needed. 60 g 025 Active clobetasol (TEMOVATE) 0.05 % cream Apply 1 Application topically 2 (two) times a day as needed (Eczema). Eczema 025 Active buPROPion (WELLBUTRIN SR) 100 MG SR 12 hr tablet TAKE 1 TABLET BY MOUTH EVERY DAY 90 tablet 3 025 Active levothyroxine (SYNTHROID, LEVOTHROID) 100 MCG tabletIndications :Acquired hypothyroidism TAKE 1 TABLET BY MOUTH ONCE DAILY IN THE MORNING 90 tablet 3 025 Active amLODIPine (NORVASC) 5 MG tablet Take 1 tablet (5 mg total) by mouth daily. 90 tablet 1 025 Active atenolol (TENORMIN) 100 MG tabletIndications :Essential hypertension TAKE 1 TABLET BY MOUTH EVERY DAY 90 tablet 3 025 Active atorvastatin (LIPITOR) 10 MG tablet Take 1 tablet by mouth once daily 90 tablet 025 Active hydroCHLOROthiazi de 25 MG tablet Take 1 tablet by mouth once daily 90 tablet 025 Active atorvastatin (LIPITOR) 10 MG tablet Take 1 tablet by mouth once daily 90 tablet 025 2024 Discontinued hydroCHLOROthiazi de 25 MG tablet Take 1 tablet by mouth once daily 90 tablet 025 2024 Discontinued Hospital, Clinic, or Other Facility Administered Medication [...] right eye. I advised urgent evaluation by director radiation oncology for further assessment and diagnoses. 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 1 Magnetic resonance imaging of brain [...] Encounters Date Type Department Care Team Description 06/10/2025 Refill [facility] [place] [address] [place] [address] Stan Diaz MD Medication Refill 06/02/2025 9:00 AM EDT Office Visit [facility] [address] [place] [address] Stan Diaz MD Essential hypertension (Primary Dx); Hair loss 05/06/2025 1:30 PM EDT Office Visit [facility] [address] [place] [address] Syl Campuzano MD Primary localized osteoarthrosis of right shoulder region (Primary Dx) 04/23/2025 8:20 AM EDT - 04/23/2025 11:59 PM EDT Hospital Encounter [facility] [address] [place] [address] Stan Diaz MD Discharge Disposition: Home or Self Care 04/21/2025 10:00 AM EDT Office Visit [facility] [address] [place] [address] Stan Diaz MD Essential hypertension (Primary Dx); 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; Acquired hypothyroidism; Hair loss from Last 3 Months Immunizations Immunization Administration Dates Next Due COVID-19 (Pre-07/30) Zapya Vaccine, Bivalent 12+ 07/09/2022 COVID-19 (Pre-07/30) Pfizer [...] Sign Reading Time Taken Comments Blood Pressure 136/82 06/02/2025 8:48 AM EDT Pulse 52 06/02/2025 8:48 AM EDT Temperature 35.6 C (96 F) 06/02/2025 8:48 AM EDT Respiratory Rate 20 04/04/2023 12:51 PM EDT Oxygen Saturation 98% 06/02/2025 8:48 AM EDT Inhaled Oxygen Concentration - - Weight 57.9 kg (127 lb 9.6 oz) 06/02/2025 8:48 A M EDT Height 152.5 cm (5' 0.04 ) 06/02/2025 8:48 AM ED T Body Mass Index 24.89 06/02/2025 8:48 AM EDT Plan of Treatment Upcoming Encounters Date Type Department Care Team (Late st Contact Info) Description 12/21/2025 9:00 AM EDT Office Visit [facility] Medicine [address] [place] [address] [place] [address] Stan Diaz MD 22 [facility], [address] [place] [address] Health Maintenance Due Date Last Done Comments COLOGUARD 1995 FIT TEST 1995 FOBT 1995 SIGMOIDOSCOPY 1995 VIRTUAL COLONOSCOPY 1995 INFLUENZA VACCINE (#1) 2025 , 07/01/2023, 07/01/2023, Additional history exists COVID-19 VACCINE ( season) 2025 06/27/2024, 07/03/2023, 07/09/2022, Additional history exists DEPRESSION SCREENING 10/22/2025 10/22/2024 BLOOD PRESSURE 12/03/2025 06/02/2025 LIPID PANEL 04/23/2026 04/23/2025, 09/0 01/2024, 04/05/2023, [...] STATUS SCREENING (Once After 26 Yrs) Completed 06/02/2025 HEPATITIS A VACCINES Aged Out No long [...] 8:30 AM EDT 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 TSH WITH REFLEX Routine 04/23/2025 8:30 AM EDT Acquired hypothyroidism CBC AND DIFFERENTIAL Routine 04/23/2025 8:30 AM EDT Hair loss FERRITIN Routine 04/23/2025 8:30 AM EDT Hair loss BASIC METABOLIC PANEL Routine 04/23/2025 8:30 AM EDT 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 BI MAMMOGRAM SCREENING WITH TOMOSYNTHESIS WITH [...] EDT) TSH 1.98 0.27 - 4.20 uIU/mL [facility] Blood 04/23/2025 8:30 AM EDT 04/23/2025 8:34 AM EDT us Stan Diaz MD LAB BLOOD ORDERABLES Final Result [address] [id number] * (ABNORMAL) CBC and differential (04/23/2025 8:30 AM EDT) WBC 5.80 4.00 - 11.00 K/uL [facility] RBC 4.52 4.00 - 5.20 M/uL [facility] HGB 14.2 12.0 - 16.0 g/dL [facility] HCT 41.4 36.0 - 46.0 % [facility] PLT 251 150 - 450 K/uL [facility] MCV 91.6 80.0 - 100.0 fL [facility] MCH 31.4(H) 27.0 - 31.0 pg [facility] MCHC 34.3 32.0 - 36.0 g/dL [facility] RDW 12.1 11.5 - 14.5 % [facility] MPV 9.8 8.4 - 12.0 fL [facility] NRBC 0.00 0.00 /100 WBCs [facility] ABSOLUTE NRBC 0.00 0.00 K/uL [facility] DIFF METHOD Auto [facility] NEUTS 54.4 48.0 - 76.0 % [facility] LYMPHS 32.1 18.0 - 41.0 % [facility] MONOS 8.1 4.0 - 11.0 % [facility] EOS 4.3 0.0 - 5.0 % [facility] BASOS 0.9 0.0 - 1.5 % [facility] Granulocytes, immature (%) 0.2 0.0 - 0.9 % [facility] ABSOLUTE NEUTS 3.16 1.92 - 7.60 K/uL [facility] ABSOLUTE LYMPHS 1.86 0.72 - 4.10 K/uL [facility] ABSOLUTE MONOS 0.47 0.16 - 1.10 K/uL [facility] ABSOLUTE EOS 0.25 0.00 - 0.50 K/uL [facility] ABSOLUTE BASOS 0.05 0.00 - 0.15 K/uL [facility] Granulocytes, immature 0.01 0.00 - 0.09 K/uL [facility] Blood 04/23/2025 8:30 AM EDT 04/23/2025 8:34 AM EDT Stan Diaz MD LAB BLOOD ORDERABLES Final Result Performing Organization Address [facility] Co de Phone Number [address] [address] * Ferritin (04/23/2025 8:30 AM EDT) FERRITIN 103 13 - 150 ug/L [facility] Blood 04/23/2025 8:30 AM EDT 04/23/2025 8:34 AM EDT Stan Diaz MD LAB BLOOD ORDERABLES Final Result Performing Organization Address [facility] Co de Phone Number [address] [address] * (ABNORMAL) Lipid panel (04/23/2025 8:30 AM EDT) HDL 63 mg/dL [facility] Comment: Interpretation <40 mg/dL: Low HDL cholesterol (major risk factor for CHD) Greater than or equal to 60 mg/dL: High HDL cholesterol ( negative risk factor for CHD) HDL - cholesterol is affected by a number of factors, e.g. smoking, excerise, hormones, sex and age. CHOLESTEROL 163 0 - 240 mg/dL [facility] TRIGLYCERIDES 130 30 - 160 mg/dL [facility] LDL 74 50 - 129 mg/dL [facility] Comment: LDL levels in terms of risk for coronary heart disease: <100 mg/dL: Optimal 100-129 mg/dL: Near or above optimal 130-159 mg/dL: Borderline high 160-189 mg/dL: High >190 mg/dL: Very High CARDIAC RISK RATIO 2.6(L) 3.3 - 4.4 C [facility] Blood 04/23/2025 8:30 AM EDT 04/23/2025 8:34 AM EDT Stan Diaz MD LAB BLOOD ORDERABLES Final Result Performing Organization Address City/[facility]/ZIP Co de Phone Number [address] [address] * Basic metabolic panel (04/23/2025 8:30 AM EDT) SODIUM 136 133 - 146 mmol/L [facility] CHLORIDE 99 96 - 108 mmol/L [facility] POTASSIUM 3.8 3.3 - 5.1 mmol/L [facility] Comment:Specimen slightly he molyzed, result may be falsely elevated. CO2 27 21 - 35 mmol/L [facility] BUN 17 6 - 19 mg/dL [facility] CREATININE 0.70 0.5 - 1.5 mg/dL [facility] GLUCOSE 94 70 - 99 mg/dL [facility] CALCIUM 9.6 8.4 - 10.3 mg/dL [facility] EGFR 91 >59 mL/min/1.7 3m2 [facility] Comment:Estimated glomerular filtration rate calculated using the CKD-EPI refit equation. ANION GAP 14 10 - 20 mmol/L [facility] Blood 04/23/2025 8:30 AM EDT 04/23/2025 8:34 AM EDT us Stan Diaz MD LAB BLOOD ORDERABLES Final Result Performing Organization Address City/[facility]/ZIP Co de Phone Number [address] [address] * BI MAMMOGRAM SCREENING WITH TOMOSYNTHESIS WITH [...] By: STAN DIAZ V Indications: Osteopenia Scanner: [id number] with serial# of [id number] located at [facility] Bone Density Scan (DXA) 06/11/24 Details of [...] -2.5), or Osteoporosis (T-score <= -2.5). At [facility], T-scores are compared to peak bone density [...] By: STAN DIAZ V Indications: Osteopenia Scanner: [id number] with serial# of [id number] located at [facility] Bone Density Scan (DXA) 06/11/24 Details of [...] -2.5), or Osteoporosis (T-score <= -2.5). At [facility], T-scores are compared to peak bone density [...] 12/30/2021 8:43 AM EDT Patient Name: Lissette Shrestha MD:: JAZMÍN DUBOIS MD Procedure Date: 12/30/2021 8:43 AM Date of : 1950 Age: 71 Admit Type: Outpatient Gender: Female Room: [facility] Referring MD: STAN DIAZ MD Exam Type: [...] monitored continuously. The Olympus adult variable colonoscope [id number] #1 was introduced through the anus and [...] 8:43 AM Procedure Code(s): --- Professional --- 06882, Colonoscopy, flexible; with biopsy, single or multiple --- Technical --- 35462, Colonoscopy, flexible; with biopsy, single or multiple Diagnosis Code(s): --- Professional --- Z86.010, Personal history of colonic polyps K63.5, Polyp of colon --- Technical --- Z86.010, Personal history of colonic polyps K63.5, Polyp of colon CPT copyright 2020 [employer]. All rights reserved. The codes documented in this report are preliminary and upon weblogic administrator reviewmay be revised to meet current compliance requirements. Procedure Date: 12/30/2021 8:43:[address] [place] [address] Stan Diaz MD GI PROCEDURE ORDERABLES Fi nal Result * Hepatitis C antibody, qualitative (08/09/2018 9:13 AM EDT) HCV Negative Negative [facility] Comment: This is a screening test and should be confirmed with molecular testing Blood 08/09/2018 9:13 AM EDT 08/09/2018 9:17 AM EDT Stan Diaz MD LAB BLOOD ORDERABLES Final Result [facility] [address] [place] [address] from Last 3 Months or Most Recently Relevant to Health Maintenance Insurance MEDICARE PART A & B [employer] [facility] [employer] MEDICARE SUPPLEMENT MEDICARE PART A & B [facility] MEDICARE SUPPLEMENT MEDICARE PART A & [facility] MEDICARE SUPPLEMENT MEDICARE PART A & B [facility] EX[facility] MEDICARE SUPPLEMENT MEDICARE PART A & B [employer] MEDICARE SUPPLEMENT MEDICARE PART A & B [employer] MEDICARE SUPPLEMENT MEDICARE PART A & B [facility] MEDICARE SUPPLEMENT MEDICARE PART A & B [employer] [facility] MEDICARE SUPPLEMENT MEDICARE PART A & B [employer] [facility] MEDICARE SUPPLEMENT [place] [id number] Care Teams String Top Sealer Relationship Specialty Start Date End Date Stan Diaz MD [address] [place] [address], [address] [place] [address] PCP - General 07/26/17 Jarrod Goncalves MD [address] [address] Vascular Surgery 09/15/19 Stan Diaz MD [address] [place] [address], [address] [place] [address] Insurance Assigned Provider 01/12/24 Additional Source Comments The information contained in this document represents components of the legal health record. It is not the complete legal health record.[facility]
--- OUTSIDE RECORDS SUMMARY | 2025-07-01 10:29 | XMS_ITS | Encounter Summary ---
Author Organization [facility]ly [facility] Address [address] [place] [id number] Phone Care Team Providers Care Retail Merchandising Coordinator Name Role Phone Stan Diaz MD Primary Care Provider + [phone] Jarrod Goncalves MD Unavailable [phone] Stan Diaz MD Unavailable [phone] Encounter Details Date Type Department Care Team (Late st Contact Info) Description 07/25/2021 Procedure Pass [address] [address] Social History Tobacco Use Types Packs/Day Years [...] Description 12/21/2025 9:00 AM EDT Office Visit [facility] [address] [place] [address] Stan Diaz MD [address] [facility], [address] [place] [address] [email or web address] documented as of this encounter Visit Diagnoses Not on filedocumented in this encounter Additional Health Concerns Assessment Noted Time PHQ-2 Depression Total Score: 0 11/15/19 21 1:20 PM EST documented as of this encounter Care Teams Retail Merchandising Coordinator Relationship Specialty Start Date End Date Stan Diaz MD [address] [place] [address], [address] [place] [address] [email or web address] PCP - General 07/26/17 Jarrod Goncalves MD [address] [address] Vascular Surgery 09/15/19 Stan Diaz MD [address] [place] [address], [address] [place] [address] [email or web address] Insurance Assigned Provider 01/12/24 documented as of this encounter Additional Source Comments The information contained in this document represents components of the legal health record. It is not the complete legal health record.[facility]
--- OUTSIDE RECORDS SUMMARY | 2025-07-01 10:29 | XMS_ITS | Encounter Summary ---
Author Organization [facility] Address [address] [facility] [address] [place] [phone] Phone Care Team Providers Care Freight Broker Agent Name Role Phone Stan Diaz MD Primary Care Provider + [phone] Jarrod Goncalves MD Unavailable [phone] Stan Diaz MD Unavailable [phone] Encounter Details Date Type Department Care Team (Late st Contact Info) Description 07/24/2019 Ancillary Orders [address] [place] [address] Stan Diaz MD [address] [facility] [place] [address] [email or web address] Breast screening Social History Tobacco Use Types [...] Description 12/21/2025 9:00 AM EDT Office Visit [address] [place] [address] Stan Diaz MD [address] [place] [address], [address] [place] [address] documented as of this encounter Results * [...] and compared with multiple prior studies, most nnxqneiz76/11/2019, with utilization of computer-aided detection. The breasts [...] documented as of this encounter Care Teams Freight Broker Agent Relationship Specialty Start Date End Date Stan Diaz MD [address] [place] [address], [address] [place] [address] [email or web address] PCP - General 07/26/17 Jarrod Gocnalves MD [address] [address] Vascular Surgery 09/15/19 Stan Diaz MD [address] [place] [address], [address] [place] [address] [email or web address] Insurance Assigned Provider 01/12/24 documented as of this encounter Additional Source Comments The information contained in this document represents components of the legal health record. It is not the complete legal health record.[facility]
== END 2025-07-01 08:56 | disposition home or self-care (01) ==
LOC: HO.HMGAL 08:55
PROVIDERS: PCP Family Medicine; Visit Provider Registered Nurse Emergency
DX: J30.89 Other allergic rhinitis (principal)
CPT/HCPCS: 95117; 95165

== ENCOUNTER 2025-07-27 10:20 | Outpatient (AMB) | payer MEDICARE, OTHER, SELFPAY | END 2025-07-27 10:21 | disposition home or self-care (01) | LOC: HO.HMGAL 10:20 | PROVIDERS: PCP Family Medicine; Visit Provider Registered Nurse Emergency | DX: J30.89 Other allergic rhinitis (principal) | CPT/HCPCS: 95117; 95165 ==

== ENCOUNTER 2025-08-24 10:13 | Outpatient (AMB) | payer MEDICARE, OTHER, SELFPAY | END 2025-08-24 10:13 | disposition home or self-care (01) | LOC: HO.HMGAL 10:13 | PROVIDERS: PCP Family Medicine; Visit Provider Registered Nurse Emergency | DX: J30.89 Other allergic rhinitis (principal) | CPT/HCPCS: 95117; 95165 ==

== ENCOUNTER 2025-09-23 09:22 | Outpatient (AMB) | payer MEDICARE, OTHER, SELFPAY | END 2025-09-23 09:22 | disposition home or self-care (01) | LOC: HO.HMGAL 09:22 | PROVIDERS: PCP Family Medicine; Visit Provider Registered Nurse Emergency | DX: J30.89 Other allergic rhinitis (principal) | CPT/HCPCS: 95117; 95165 ==